=== PATIENT | female | born 1965 ===

== ENCOUNTER 2023-10-13 09:57 | Outpatient (AMB) | payer MEDICAID, SELFPAY ==
--- NOTE | 2023-10-13 11:19 | MHC.OFFWIV ---
Intake Vital Signs 10/13/23 11:21 Height 5 ft 2 in Weight 86.183 kg BMI 34.7 BP 110/70 Blood Pressure Location Rt brachial Position Sitting Pulse 82 Pulse Source Pulse Oximeter Temp 97.9 F Temp Source Temporal Artery Scan Pulse Oximetry (%) 97 Oxygen Delivery Method Room Air Intake Visit Reasons: EP, Left foot pain/swelling Intake Note: pt is here today for lft foot pain,swelling started 3 months ago Allergies No Known Allergies Allergy (Verified 10/13/23 11:24) Do you need a note to return to daycare/school/sports/work: No HPI HPI Comments History of Present Illness Details 1133 58-year old female presents with left lateral foot pain for the past year worsening acutely over the past 3 months patient tells me that this pain started a year ago when she dropped a can on her left foot she is coming from [place], according to patient she brings a file papers with her she has been diagnosed with a left ganglionic cyst to left lateral aspect of foot, was scheduled to have surgery done for this and [place] however she moved here. Does not have an orthopedic doctor and is looking for a referral. She comes with imaging and x-rays which I was able to see. Denies numbness, tingling, lower extremity swelling, chest pain, shortness of breath, calf pain. No recent trauma Physical exam tenderness to palpation overlying the 5th metatarsal and lateral aspect of foot with overlying swelling. Negative Monique bilaterally. Normal sensation distally. 2+ dorsalis pedis, anterior tibialis and posterior tibialis pulses equal bilateral. Patient likely secondary to inflammatory changes from ganglionic cyst versus bone bruise/contusion. Unlikely fracture, dislocation, neurovascular compromise, threat to Galan, arterial or venous occlusion. Plan at this time orthopedic referral, prednisone and naproxen. Educated patient on diagnosis and treatment plan, answered all question, patient verbalizes understanding. At this time patient will be discharged home, advised to return with new or worsening symptoms. Educated on worrisome signs and symptoms and when to return. At this time I feel comfortable discharge home. Review of Systems Const Details: Constitutional : No Weight loss, No Fever, No Chills, No Fatigue, No Malaise ENT/Mouth : No sore throat, No Rhinorrhea Eyes: No Eye Pain, No Swelling, No Redness Cardiovascular : No Chest Pain, No SOB, No Dyspnea on Exertion, No Orthopnea, No Edema, No Palpitations Respiratory : No Cough, No Sputum, No Wheezing Gastrointestinal : No Nausea, No Vomiting, No Diarrhea, No Constipation, No abdominal Pain, No Hematochezia, No Melena Genitourinary : No Dysuria, No Urinary Frequency, No Hematuria, Musculoskeletal : + joint pain, No Myalgias, + Joint Swelling Skin : No Skin Lesions, No rash Neuro : No Weakness, No Numbness, No Dizziness, No Headache Psych : No Anxiety/Panic, No Depression All other systems reviewed and are negative All systems reviewed & are unremarkable except as noted in HPI and below Physical Exam Vital Signs: Last Vital Signs Temp 97.9 F 10/13/23 11:21 Pulse 82 10/13/23 11:21 BP 110/70 10/13/23 11:21 Pulse Ox 97 10/13/23 11:21 Oxygen Delivery Method Room Air 10/13/23 11:21 BMI result Body Mass Index 34.7 Vital signs stable Appearance: Alert.? Oriented X3.? No acute distress.? Head: Normocephalic, atraumatic, no step-offs or deformities Eyes: Pupils equal, round and reactive to light.? CVS: Normal heart rate and rhythm.? Pulses normal.? Respiratory: No respiratory distress.? Breath sounds normal.? Skin: Skin warm and dry.? Normal skin color.? Normal skin turgor.? Extremities: No lower extremity edema.? No calf ttp. 5/5 strength to bilateral upper and lower extremities tenderness to palpation overlying the 5th metatarsal and lateral aspect of foot with overlying swelling. Negative Monique bilaterally. Normal sensation distally. 2+ dorsalis pedis, anterior tibialis and posterior tibialis pulses equal bilateral. Back: No midline tenderness, no C-spine tenderness, full range of motion, no CVA tenderness bilaterally Neuro: Oriented X 3.? No motor deficit.? No sensory deficit. CN 2-12 intact Assessment & Plan Assessment & Plan (1) Ganglion cyst of foot: Code(s): M67.479 - Ganglion, unspecified ankle and foot Plan Take your medications as prescribed. If you were prescribed antibiotics today, it is important that you take your medication to their entirety, do not skip any doses, do not finish them early. Follow-up with your primary care provider this week. Return to the emergency department with new or worsening symptoms. Such as fevers, chills, chest pain, shortness of breath, nausea, vomiting, dizziness, headache, vision changes, lethargy In case of emergency call 911 Orders: Referrals Orthopedics Referral M67.479 - Ganglion, unspecified ankle and foot Medications: New prednisone 40 mg (2 x 20 mg) PO DAILY 10 tabs 0RF 5 days naproxen 500 mg PO BID PRN 14 tabs 0RF pain Coding Level of Care Code Est Pt Level 3 (31030) Diagnoses Ganglion cyst of foot M67.479
[2023-10-13 11:21] VITALS: BP 110/70; PULSE 82; TEMP 36.6; O2SAT 97; BMI 34.7
== END 2023-10-13 11:56 | disposition home or self-care (01) ==
PROVIDERS: Visit Provider Physician Assistant
DX: M67.479 Ganglion, unspecified ankle and foot (principal)
CPT/HCPCS: 99213

== ENCOUNTER 2023-11-09 08:45 | Outpatient (AMB) | payer OTHER, SELFPAY ==
--- NOTE | 2023-11-09 08:51 | A.OFFPC_ITS ---
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 Intake Note: Pt is here to est care her last Pap and Mammo was in [place] about a year ago pt had her colon screen in was done in [place] and she says she is supposed to get checked every 5 years Allergies Penicillins Allergy (Intermediate, Verified 11/09/23 09:13) Hives Medication List - Last Reconciled 11/09/23 by MONICA Shaffer levothyroxine (Synthroid) 112 mcg PO DAILY Tobacco use date assessed: 11/09/23 Dental Screening Dental Screen Date: 11/09/23 Did you have a dental visit in the last 12 months?: Yes Did you have a dental problem in the last 6 months where you did not have access to dental care?: No Was dental information given to patient?: Patient has dentist HPI HPI Comments History of Present Illness Details Patient is a 58-year-old female here to establish care. She has a past medical history significant for hypothyroidism and asthma. She recently moved up to the [facility] from [place] and is looking to establish with a new primary care provider. She was recently seen in the walk-in clinic for a ganglion cyst of the left lower lateral aspect of the left extremity. X-ray and information from previous provider will be obtained. She was given a orthopedic referral and has an appointment this month. She is due for mammogram, will order. Her primary complaint today is bilateral hand pain. She states that she uses her hands often and has developed bilateral and pain over the MP joint. She denies any trauma to the area. This has been a problem that has slowly gotten worse over time. Uses Tylenol with little relief. Patient states that the pain is starting to interfere with daily life, having difficulty carrying her grocery. Patient has also been instructed that she should send does all of her healthcare information from her previous provider down in [place]. She states that her last colonoscopy was 1 year ago, and she was told at the time that she should be having colonoscopies every 5 years. Will verify. [facility], [facility] Medical History (Updated 11/09/23 @ 10:00 by MONICA Shaffer) Hypothyroidism Asthma Surgical History (Updated 11/09/23 @ 09:21 by MONICA Shaffer) H/O inguinal hernia repair History of H/O: hysterectomy Family History (Updated 11/09/23 @ 09:22 by MONICA Shaffer) Maternal Grandfather Diabetes type 2, controlled Father Diabetes type 2, controlled Social History Housing: Condominium Patient Tobacco Use Status: Former Tobacco user Quit Date: 10 years ago Years Smoked: 10 Second Hand Smoke Exposure: No service: No Current occupational status: retired Cognitive needs: No Hearing needs: No Vision needs: No Questionnaire PHQ-9 Over the last 2 weeks, how often have you been bothered by any of the following problems? 1. Little interest or pleasure in doing things: more than half the days 2. Feeling down, depressed, or hopeless: not at all 3. Trouble falling or staying asleep, or sleeping too much: more than half the days 4. Feeling tired or having little energy: several days 5. Poor appetite or overeating: several days 6. Feeling bad about yourself - or that you are a failure or have let yourself or your family down: not at all 7. Trouble concentrating on things, such as reading the newspaper or watching television: not at all 8. Moving or speaking so slowly that other people could have noticed. Or the opposite - being so fidgety or restless that you have been moving around a lot more than usual: not at all 9. Thoughts that you would be better off or of hurting yourself in some way: not at all Total score: 6 Depression Screening Interpretation: Negative Depression Screening Done: Yes 83141 - PHQ-9 Billing: Yes Source: Developed by Drs. Theron Peterson, Lucila Zelaya, Gus Cota and colleagues, with an educational laura from [employer]. Thrive Questionnaire Date Thrive assessed: 11/09/23 I am a: Patient What is your living situation today?: I have a steady place to live Within the past 12 months, did the food you bought not last and you didn't have the money to get more?: Sometimes True Within the past 12 months, did you worry whether your food would run out before you got money to buy more?: Sometimes True Do you have trouble paying for medicines?: Yes Do you have trouble getting transportation to medical appointments?: No Do you have trouble paying your heating and electricity bill?: No Do you have trouble taking care of your child, family member or friend?: No Do you have trouble with day-to-day activities such as bathing, preparing meals, shopping, managing finances, etc.?: No Are you currently unemployed and looking for a job?: No Are you interested in more education?: No AUDIT C Alcohol Use Questionnaire (AUDIT-C) 1. How often do you have a drink containing alcohol?: Monthly or less 2. How many drinks containing alcohol do you have on a typical day when you are drinking?: 1 or 2 3. How often do you have six or more drinks on one occasion?: Never Total Score: 1 ADAM-7 AMB Questionnaire ADAM-7 Date ADAM - 7 assessed: 11/09/23 Feeling nervous, anxious, or on edge: 1 = Several days Not being able to stop or control worryin = Not at all Worrying too much about different things: 2 = More than half the days Trouble relaxin = Several days Being so restless that it is hard to sit still: 0 = Not at all Becoming easily annoyed or irritable: 0 = Not at all Feeling afraid as if something awful might happen: 1 = Several days Total ADAM-7 score (0-4 normal; 5-9 mild; 10-14 moderate; 15-21 severe): 5 Source: Developed by Drs. Theron Peterson, Lucila Zelaya, Gus Cota and colleagues, with an educational laura from [employer]. ADAM-7 Assessment Billing ADAM-7 Assessment Tool: ADAM-7 Assessment 80264 Review of Systems Const Details: Constitutional : No Weight loss, No Fever, No Chills, No Fatigue, No Malaise ENT/Mouth : No sore throat, No Rhinorrhea Eyes: No Eye Pain, No Swelling, No Redness Cardiovascular : No Chest Pain, No SOB, No Dyspnea on Exertion, No Orthopnea, No Edema, No Palpitations Respiratory : No Cough, No Sputum, No Wheezing Gastrointestinal : No Nausea, No Vomiting, No Diarrhea, No Constipation, No abdominal Pain, No Hematochezia, No Melena Genitourinary : No Dysuria, No Urinary Frequency, No Hematuria, Musculoskeletal : Admits bilateral hand pain over MP joints. Skin : No redness. Patient admits to dark spots where previous fungal infection was. Neuro : No Weakness, No Numbness, No Dizziness, No Headache Psych : No Anxiety/Panic, No Depression Heme/Lymph: No Bruising, No Bleeding,No Lymphadenopathy Endocrine : No Polyuria, No Polydipsia All other systems reviewed and are negative Physical exam (Primary Care) Vital Signs: Last Vital Signs Pulse 76 11/09/23 08:53 BP 120/78 11/09/23 08:53 Pulse Ox 97 11/09/23 08:53 Oxygen Delivery Method Room Air 11/09/23 08:53 Care Plan Goal for BP management: Vitals reviewed and are stable. BMI result Body Mass Index 34.5 Tobacco/Smoking Status: Tobacco use Status Tobacco use date assessed 11/09/23 11/09/23 09:02 Patient Tobacco Use Status Former Tobacco user 11/09/23 09:02 Depression Screening Interpretation: Negative Const Other: Appearance: Alert.? Oriented X3.? No acute distress.? Head: Normocephalic, atraumatic, no step-offs or deformities Neck: Normal inspection.? Neck supple.? CVS: Normal heart rate and rhythm.? Pulses normal.? Respiratory: No respiratory distress.? Breath sounds normal.? Skin: Dark pigmented macular patch over previous site of fungal infection. Appears to be healing. ? Extremities: Erythema over the 1st and 2nd MP joint of the bilateral hands. 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 No cracking or crepitus. Warm to touch. Neuro: Oriented X 3.? No motor deficit.? No sensory deficit. CN 2-12 intact Results Reviewed Results Reviewed: Will call patient with lab results and imaging results. Assessment and Plan Assessment & Plan (1) Osteoarthritis: Comment: Patient has been given diclofenac gel to be used as prescribed. She has been educated how to use medication properly and common side effects. Will also obtain x-ray of bilateral hands. Code(s): M19.90 - Unspecified osteoarthritis, unspecified site Qualifiers: Osteoarthritis location: hand Osteoarthritis type: primary Laterality: bilateral Qualified Code(s): M19.041 - Primary osteoarthritis, right hand; M19.042 - Primary osteoarthritis, left hand Plan: Will follow-up after imaging results. Plan Patient is returning in 2 months for her annual physical exam. She has agreed to get labs drawn prior to that appointment. Orders: Orders Complete Blood Count Auto Diff Today Z13.0 - Encounter for screening for diseases of the blood and blood-forming organs and certain disorders involving the immune mechanism Comprehensive Met. Panel Today Z91.89 - Other specified personal risk factors, not elsewhere classified XR hand LT 2V Today M19.90 - Unspecified osteoarthritis, unspecified site Lipid Panel 1 Month Z13.220 - Encounter for screening for lipoid disorders Vitamin D 25-OH (D2 and D3) 1 Month Z13.21 - Encounter for screening for nutritional disorder TSH reflex Free T4 1 Month Z13.29 - Encounter for screening for other suspected endocrine disorder Rheumatoid Factor Today Z13.828 - Encounter for screening for other musculoskeletal disorder UA CC w/rflx Micro + Cult Today E86.0 - Dehydration XR hand RT 2V Today M19.90 - Unspecified osteoarthritis, unspecified site MM tomosynthesis screening BI Today Z12.31 - Encounter for screening mammogram for malignant neoplasm of breast Medications: New levothyroxine (Synthroid) 112 mcg PO DAILY 90 tabs 0RF diclofenac sodium 1% (Arthritis Pain (diclofenac)) apply to single elbow, wrist or hand; for hand includes palm/fingers/back of hand 2 grams topical QID 100 grams 0RF albuterol sulfate 90 mcg/actuation 2 puffs inhalation Q6H PRN 6.7 grams 0RF shortness of breath or wheezing Coding Level of Care Code Est Pt Level 3 (66361) Diagnoses Primary osteoarthritis of both hands M19.041; M19.042 Osteoarthritis location: hand Osteoarthritis type: primary Laterality: bilateral Additional Codes ADAM-7 Assessment Billing - ADAM-7 Assessment Tool: ADAM-7 Assessment 42804 ([id number]) Time Spent (min) 45
[2023-11-09 08:53] VITALS: BP 120/78; PULSE 76; O2SAT 97; BMI 34.5
== END 2023-11-09 10:01 | disposition home or self-care (01) ==
PROVIDERS: Visit Provider Nurse Practitioner Primary Care
DX: M19.041 Primary osteoarthritis, right hand (principal); M19.042 Primary osteoarthritis, left hand
CPT/HCPCS: 99214

== ENCOUNTER 2023-11-10 11:07 | Outpatient (REF) | payer OTHER, SELFPAY ==
--- NOTE | ~2023-11-10 | XR_ITS ---
EXAMINATION: XR HAND, LEFT CLINICAL INFORMATION: Osteoarthritis COMPARISON: None available. TECHNIQUE: PA, lateral, and oblique views of the left hand. FINDINGS: Bones are well-mineralized soft tissues unremarkable. Interphalangeal joints and metacarpophalangeal joints are unremarkable. There are mild degenerative changes of the first metacarpophalangeal joint with marginal spurring. XR/XR hand LT 2V IMPRESSION: Mild degenerative changes at the first carpometacarpal joint
--- NOTE | ~2023-11-10 | XR_ITS ---
EXAMINATION: XR HAND, RIGHT CLINICAL INFORMATION: Osteoarthritis COMPARISON: None available. TECHNIQUE: PA, lateral, and oblique views of the right hand. FINDINGS: Bones and soft tissues are unremarkable. Interphalangeal joints and metacarpophalangeal joints are preserved. There is no evidence of fracture. There are mild degenerative changes at the base of first carpometacarpal joint. XR/XR hand RT 2V IMPRESSION: Mild degenerative changes in the first carpometacarpal joint.
[2023-11-10 14:16] LABS: Alanine Aminotransferase 14 U/L (0-31); Alkaline Phosphatase 62 U/L (39-117); Anion Gap 13 (12-20); Aspartate Amino Transferase 17 U/L (5-31); Bilirubin Total 0.4 mg/dL (0.0-1.0); Blood Urea Nitrogen 14 mg/dL (9-16); Calcium 9.4 mg/dL (8.4-10.2); Carbon Dioxide 26 mmol/L (22-29); Chloride 107 mmol/L (96-108); Estimated Glomerular Filt Rate > 60; Glucose Random 100 mg/dL (60-115); Potassium 3.6 mmol/L (3.3-5.1); Sodium 142 mmol/L (135-145)
== END 2023-11-10 11:08 | disposition home or self-care (01) ==
LOC: HO.HMGCX 11:07
PROVIDERS: PCP Nurse Practitioner Primary Care; Visit Provider Nurse Practitioner Primary Care
DX: Z13.0 Encounter for screening for diseases of the blood and blood-forming organs and certain disorders involving the immune mechanism (principal); Z13.828 Encounter for screening for other musculoskeletal disorder; E86.0 Dehydration; Z91.89 Other specified personal risk factors, not elsewhere classified; M19.041 Primary osteoarthritis, right hand; M19.042 Primary osteoarthritis, left hand
CPT/HCPCS: 36415; 73120; 80053; 81003; 85025; 86431

== ENCOUNTER 2023-12-14 10:04 | Outpatient (AMB) | payer OTHER, SELFPAY ==
[2023-12-14 10:04] VITALS: BP 130/88; PULSE 90; TEMP 36.4; O2SAT 96; BMI 34.0
--- NOTE | 2023-12-14 10:04 | MHC.OFFWIV ---
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 [facility] Medical History (Updated 11/09/23 @ 10:00 by MONICA Shaffer) Hypothyroidism Asthma Surgical History (Updated 11/09/23 @ 09:21 by MONICA Shaffer) H/O inguinal hernia repair History of H/O: hysterectomy Family History (Updated 11/09/23 @ 09:22 by MONICA Shaffer) Maternal Grandfather Diabetes type 2, controlled Father Diabetes type 2, controlled Social History Housing: Condominium Patient Tobacco Use Status: Former Tobacco user Quit Date: 10 years ago Years Smoked: 10 Second Hand Smoke Exposure: No service: No Current occupational status: retired Cognitive needs: No Hearing needs: No Vision needs: No Review of Systems Const All systems reviewed & are unremarkable except as noted in HPI and below Physical Exam Vital Signs: Last Vital Signs Temp 97.5 F 12/14/23 10:04 Pulse 90 12/14/23 10:04 BP 130/88 12/14/23 10:04 Pulse Ox 96 12/14/23 10:04 Oxygen Delivery Method Room Air 12/14/23 10:04 BMI result Body Mass Index 34.0 HEENT Head: Yes normocephalic Ears: external ears normal, TM's normal bilaterally and TM abnormal not bulging, not bullous and not erythematous General nose exam: Normal nasal mucous membranes and turbinates present Face and sinus: Yes sinuses nontender Mouth: Normal oral and palatal mucosa present Throat: Yes posterior oropharynx normal Resp Effort & Inspection: normal respiratory effort Auscultation: clear to auscultation bilaterally Cardio Rate: regular rate Rhythm: regular rhythm Assessment & Plan Assessment & Plan (1) Otalgia: Code(s): H92.09 - Otalgia, unspecified ear Qualifiers: Laterality: left Qualified Code(s): H92.02 - Otalgia, left ear Plan: - Ears clear no infection at this time - Acetaminophen for pain relief. Medications: New acetaminophen 1,000 mg (2 x 500 mg) PO Q6H PRN 30 caps 0RF ear pain H92.02 - Otalgia, left ear Coding Level of Care Code Est Pt Level 3 (27498) Diagnoses Left ear pain H92.02 Laterality: left Time Spent (min) 15
== END 2023-12-14 11:17 | disposition home or self-care (01) ==
PROVIDERS: PCP Nurse Practitioner Primary Care; Visit Provider Nurse Practitioner Family
DX: H92.02 Otalgia, left ear (principal)
CPT/HCPCS: 99213

== ENCOUNTER 2023-12-18 09:37 | Outpatient (REF) | payer OTHER, SELFPAY ==
--- NOTE | ~2023-12-18 | MM_ITS ---
EXAMINATION: MM SCREENING DIGITAL BREAST TOMOSYNTHESIS, BILATERAL CLINICAL INFORMATION: Screening. Asymptomatic. COMPARISON: Mammography: This is a baseline mammogram. TECHNIQUE: Digital breast tomosynthesis is performed in both the craniocaudal and mediolateral oblique views along with computer-aided detection (CAD). Synthesized 2D images are generated from the tomosynthesis. FINDINGS: There are scattered areas of fibroglandular density (ACR BI-RADS breast composition Category b). There are no significant masses, abnormal calcifications, or other abnormalities. MM/MM tomosynthesis screening BI IMPRESSION: No mammographic evidence of malignancy. ASSESSMENT: BI-RADS BI-RADS 1 - Negative RECOMMENDATION: Routine annual mammography screening. 1 year F/U This examination should not preclude the clinical evaluation of a suspicious palpable abnormality. This patient's information was entered into a reminder system with a target due date for their next mammogram.
== END 2023-12-18 09:38 | disposition home or self-care (01) ==
LOC: HO.MAMMO 09:37
PROVIDERS: PCP Nurse Practitioner Primary Care; Visit Provider Nurse Practitioner Primary Care
DX: Z12.31 Encounter for screening mammogram for malignant neoplasm of breast (principal)
CPT/HCPCS: 77063; 77067

== ENCOUNTER → 2023-12-18 10:30 | Outpatient (BNV) | payer OTHER, SELFPAY | PROVIDERS: PCP Nurse Practitioner Primary Care; Visit Provider Radiology Diagnostic Radiology | DX: Z12.31 Encounter for screening mammogram for malignant neoplasm of breast (principal) | CPT/HCPCS: 77063; 77067 ==

== ENCOUNTER 2023-12-26 08:42 | Outpatient (REF) | payer OTHER, SELFPAY ==
[2023-12-26 11:59] LABS: Cholesterol 244 mg/dL (<200); HDL Cholesterol 60 mg/dL (>40); LDL Cholesterol Calculated 160 mg/dL (<100); Triglycerides 120 mg/dL (<150)
[2023-12-26 12:15] LABS: TSH reflex Free T4 6.49 uIU/mL (0.32-4.0)
[2023-12-29 13:38] LABS: Vitamin D 25-OH, D2 <4 ng/mL; Vitamin D 25-OH, D3 24 ng/mL; Vitamin D 25-OH, Total 24 ng/mL (30-100)
== END 2023-12-26 08:43 | disposition home or self-care (01) ==
LOC: HO.HMGCLDS 08:42
PROVIDERS: PCP Nurse Practitioner Primary Care; Visit Provider Nurse Practitioner Primary Care
DX: Z13.220 Encounter for screening for lipoid disorders (principal); Z13.21 Encounter for screening for nutritional disorder; Z13.29 Encounter for screening for other suspected endocrine disorder
CPT/HCPCS: 36415; 80061; 82306; 84439; 84443

== ENCOUNTER 2024-01-10 08:36 | Outpatient (AMB) | payer OTHER, SELFPAY ==
--- NOTE | 2024-01-10 08:37 | A.OFFPC_ITS ---
Vital Signs 01/10/24 08:39 Height 5 ft 2 in Weight 191 lb 6 oz BMI 35.0 BP 110/76 Blood Pressure Location Rt brachial Position Sitting Pulse 63 Pulse Source Pulse Oximeter Pulse Oximetry (%) 97 Oxygen Delivery Method Room Air Intake Visit Reasons: Annual PE Intake Note: Pt is here for her Annual PE Pt had her last PAP last year oct 2022 in [place] pt needs referral to [facility] Allergies Penicillins Allergy (Intermediate, Verified 01/10/24 09:28) Hives Medication List - Last Reconciled 01/10/24 by MONICA Shaffer albuterol sulfate 90 mcg/actuation 2 puffs inhalation Q6H PRN budesonide-formoterol 160-4.5 mcg/actuation (Symbicort) 1 puff inhalation BID cholecalciferol (vitamin D3) 50 mcg PO DAILY diclofenac sodium 1% (Aleve (diclofenac)) 2 grams topical QID levothyroxine (Synthroid) 112 mcg PO DAILY omeprazole 20 mg PO DAILY tobramycin-dexamethasone 0.3-0.1 % 1 drp ophthalmic (eye) triamcinolone acetonide 0.1% 1 appl topical DAILY Tobacco use date assessed: 01/10/24 Dental Screening Dental Screen Date: 01/10/24 Did you have a dental visit in the last 12 months?: Yes Did you have a dental problem in the last 6 months where you did not have access to dental care?: No Was dental information given to patient?: Patient has dentist HPI HPI Comments History of Present Illness Details Patient is a 58-year-old female here today for physical exam. She completed mammogram 12/30 with recommendation for 1 year follow-up. She is due for colonoscopy in 2027. She is due for Pap smear will refer to OBGYN. She is up-to-date with influenza and on the COVID immunizations. Patient had shingles in December 2023, is interested in the vaccine, and he recommended to wait 3 months from when symptoms resolve. She has a past medical history significant for osteoarthritis hand, hypothyroidism, and reactive airway disease. She has establish care with [facility] and is currently undergoing physical therapy. Patient will send us notes. [facility] Medical History Hypothyroidism Asthma Surgical History H/O inguinal hernia repair History of H/O: hysterectomy Family History Maternal Grandfather Diabetes type 2, controlled Father Diabetes type 2, controlled Social History [facility] Patient Tobacco Use Status: Former Tobacco user Quit Date: 10 years ago Years Smoked: 10 e-Cigarette/Vaping Use: Never Used Second Hand Smoke Exposure: No service: No Current occupational status: retired Cognitive needs: No Hearing needs: No Vision needs: No Questionnaire Thrive Questionnaire Date Thrive assessed: 11/09/23 ADAM-7 AMB Questionnaire ADAM-7 Date ADAM - 7 assessed: 11/09/23 Source: Developed by Drs. Theron Peterson, Lucila Zelaya, Gus Cota and colleagues, with an educational laura from [employer]. Review of Systems Const Details: Constitutional : No Weight loss, No Fever, No Chills, No Fatigue, No Malaise ENT/Mouth : No sore throat, No Rhinorrhea Eyes: No Eye Pain, No Swelling, No Redness Cardiovascular : No Chest Pain, No SOB, No Dyspnea on Exertion, No Orthopnea, No Edema, No Palpitations Respiratory : No Cough, No Sputum, No Wheezing Gastrointestinal : No Nausea, No Vomiting, No Diarrhea, No Constipation, No abdominal Pain, No Hematochezia, No Melena, Admits intermittent reflux. Genitourinary : No Dysuria, No Urinary Frequency, No Hematuria, Musculoskeletal : Admits bilateral hand pain, PIP joints. Skin : Admits dark colored spots on bilateral forearms, denies pain or discharge. Neuro : No Weakness, No Numbness, No Dizziness, No Headache Psych : No Anxiety/Panic, No Depression Heme/Lymph: No Bruising, No Bleeding,No Lymphadenopathy Endocrine : No Polyuria, No Polydipsia All other systems reviewed and are negative Physical exam (Primary Care) Vital Signs: Last Vital Signs Pulse 63 01/10/24 08:39 BP 110/76 01/10/24 08:39 Pulse Ox 97 01/10/24 08:39 Oxygen Delivery Method Room Air 01/10/24 08:39 BMI result Body Mass Index 35.0 Tobacco/Smoking Status: Tobacco use Status Tobacco use date assessed 01/10/24 01/10/24 08:47 Patient Tobacco Use Status Former Tobacco user 01/10/24 08:40 e-Cigarette/Vaping Use Never Used 01/10/24 08:47 Thrive Assessment: Date of Thrive Assessment Date Thrive assessed 11/09/23 01/10/24 08:40 Const Other: Appearance: Alert.? Oriented X3.? Head: Normocephalic, atraumatic. Eyes: Pupils equal, round and reactive to light.? ENT: Pharynx normal.?Septum midline, TM intact and pearly chatman. Neck: Normal inspection.? Neck supple.?Full ROM. No thyroid nodules. CVS: Normal heart rate and rhythm.? Pulses normal.? Respiratory: No respiratory distress.? Breath sounds slightly diminished bilaterally. ? Abdomen: Soft and nontender.? Skin: Small, flat, macules on forearms bilaterally, no erythema or discharge. No flaking. Extremities: No lower extremity edema.? No calf ttp. 5/5 strength to bilateral upper and lower extremities Back: No midline tenderness, no C-spine tenderness, full range of motion, no CVA tenderness bilaterally Neuro: Oriented X 3.? No motor deficit.? No sensory deficit. CN 2-12 intact Results Reviewed Results Reviewed: Sodium 142 135-145 mmol/L Potassium 3.6 3.3-5.1 mmol/L CL 107 96-108 mmol/L CO2 26 22-29 mmol/L Gap 13 12-20 BUN 14 9-16 mg/dL Creat 0.81 0.5-1.4 mg/dL EGFR > 60 NOTE: For -[place] individuals, multiply the result by 1.210. Chronic Kidney Disease: Estimated GFR < 60 mL/min/ 1.73m2 Severe Kidney Disease: Estimated GFR < 15 mL/min/1.73m2 Glucose, Random 100 60-115 mg/dL CA 9.4 8.4-10.2 mg/dL Total Bili 0.4 0.0-1.0 mg/dL AST (GOT) 17 5-31 U/L ALT (GPT) 14 0-31 U/L Protein, Total 7.0 6.5-8.0 g/dL Alb 4.0 3.5-5.0 g/dL Alk Phos 62 39-117 U/L Assessment and Plan Assessment & Plan (1) Encounter for routine adult physical exam with abnormal findings: Comment: Patient recently had full panel of labs. Has referral to OBGYN. Due for colonoscopy in 4 years. Up-to-date with influenza and COVID vaccine. Patient completed mammogram 1 month prior with recommendation for 1 year follow-up. Will put in labs to be drawn in 6 months. Code(s): Z00.01 - Encounter for general adult medical examination with abnormal findings (2) Multiple hypopigmented skin lesions on both forearms: Comment: Patient states she has developed hypopigmented dark spots on her forearms bilaterally. She states she originally had a rash that she was given a cream for when she was in [place], that is resolved. Since then she has started to develop these dark patches on her forearm. She states do not itch but are increasing in number. Will refer to Dermatology. Code(s): L81.9 - Disorder of pigmentation, unspecified (3) Osteoarthritis: Comment: Patient has been given diclofenac gel to be used as prescribed. She has been educated how to use medication properly and common side effects. Patient is currently being seen by [facility]. Code(s): M19.90 - Unspecified osteoarthritis, unspecified site Qualifiers: Laterality: bilateral Osteoarthritis location: hand Osteoarthritis type: primary Qualified Code(s): M19.041 - Primary osteoarthritis, right hand; M19.042 - Primary osteoarthritis, left hand (4) Reactive airway disease: Comment: Patient has reactive airway disease. Has COVID 1 month prior to this appointments that she felt chest tightness during that time. Will prescribe Symbicort along with her albuterol inhaler. Patient has been educated about side effects of this medication how to take it properly. Code(s): J45.909 - Unspecified asthma, uncomplicated Qualifiers: Asthma persistence: unspecified Asthma severity: mild Qualified Code(s): J45.909 - Unspecified asthma, uncomplicated Orders: Orders Complete Blood Count Auto Diff 5 Months Z13.0 - Encounter for screening for diseases of the blood and blood-forming organs and certain disorders involving the immune mechanism UA CC w/rflx Micro + Cult 5 Months Z13.89 - Encounter for screening for other disorder Comprehensive Met. Panel 5 Months Z91.89 - Other specified personal risk factors, not elsewhere classified Referrals [facility] Referral Z12.4 - Encounter for screening for malignant neoplasm of cervix Dermatology Referral L81.9 - Disorder of pigmentation, unspecified Medications: New budesonide-formoterol 160-4.5 mcg/actuation (Symbicort) 1 puff inhalation BID 10.2 grams 0RF omeprazole 20 mg PO DAILY 30 caps 0RF triamcinolone acetonide 0.1% 1 appl topical DAILY 15 grams 0RF Refilled diclofenac sodium 1% (Aleve (diclofenac)) apply to single elbow, wrist or hand; for hand includes palm/fingers/back of hand 2 grams topical QID 100 grams 0RF Coding Level of Care Code Est Pt Prev Care 40-64y(36119) Diagnoses Encounter for routine adult physical exam with abnormal findings Z00.01 Multiple hypopigmented skin lesions on both forearms L81.9 Primary osteoarthritis of both hands M19.041; M19.042 Laterality: bilateral Osteoarthritis location: hand Osteoarthritis type: primary Mild reactive airways disease, unspecified whether persistent J45.909 Asthma persistence: unspecified Asthma severity: mild Time Spent (min) 34
[2024-01-10 08:39] VITALS: BP 110/76; PULSE 63; O2SAT 97; BMI 35.0
== END 2024-01-10 09:34 | disposition home or self-care (01) ==
PROVIDERS: Visit Provider Nurse Practitioner Primary Care
DX: Z00.00 Encounter for general adult medical examination without abnormal findings (principal); L81.9 Disorder of pigmentation, unspecified; M19.041 Primary osteoarthritis, right hand; M19.042 Primary osteoarthritis, left hand; J45.909 Unspecified asthma, uncomplicated
CPT/HCPCS: 99396

== ENCOUNTER 2024-07-15 07:11 | Outpatient (REF) | payer OTHER, SELFPAY ==
[2024-07-15 10:06] LABS: Appearance Urine Turbid; Color Urine Yellow; Glucose Urine UA Negative (Negative); Leukocyte Esterase Urine Small (1+) (Negative); Nitrite Urine Negative (Negative); PH 8.5 (5.0-9.0); UMIC TRIGGER UACC YES; Urine Blood Negative (Negative); Urine Ketones Negative (Negative); Urine Protein Negative (Neg-Trace)
[2024-07-15 10:09] LABS: Bacteria Urine 1+ (None Seen); Hyaline Casts Urine 0-2 /LPF (0-2); RBC Urine 0-2 /HPF (0-2); Squamous Epithelial Cell Urine 0-2 /HPF (0-2); UACC Culture Trigger YES; WBC Urine 21-50 /HPF (0-5)
[2024-07-15 10:15] LABS: MANUAL DIFF FLAG NO
[2024-07-15 10:20] LABS: Basophils Percent Auto 0.6 % (0-2); Eosinophils Absolute Auto 0.1 X10*3/uL (0.0-0.4); Eosinophils Percent Auto 1.7 % (0-4); Hematocrit 43.1 % (37.0-47.0); Imm Gran Abs Auto 0.02 X10*3/uL (0.00-0.03); Imm Gran Pct Auto 0.3 % (0.0-0.4); Lymphocytes Absolute Auto 2.2 X10*3/uL (1.2-4.9); Lymphocytes Percent Auto 33.9 % (20-40); Mean Corpuscular HGB Conc 32.5 g/dl (31.0-35.0); Mean Corpuscular Hemoglobin 28.6 pg (27.0-33.0); Mean Corpuscular Volume 88.1 fL (80.0-98.0); Mean Platelet Volume 9.7 fL (9.4-12.3); Monocytes Absolute Auto 0.4 X10*3/uL (0.1-1.2); Monocytes Percent Auto 6.2 % (2-11); Neutrophils Absolute Auto 3.7 x10*3/uL (2.0-8.3); Neutrophils Percent Auto 57.3 % (45-73); Platelet Count 301 X10*3/uL (160-400); Red Blood Count 4.89 X10*6/uL (4.20-5.50); Red Cell Distribution Width 12.6 % (11.0-16.0); White Blood Count 6.5 X10*3/uL (4.8-10.8)
[2024-07-15 10:43] LABS: Alanine Aminotransferase 17 U/L (0-31); Albumin Level 4.1 g/dL (3.5-5.0); Alkaline Phosphatase 62 U/L (39-117); Anion Gap 12 (12-20); Aspartate Amino Transferase 16 U/L (5-31); Bilirubin Total 0.4 mg/dL (0.0-1.0); Blood Urea Nitrogen 18 mg/dL (9-16); Calcium 9.4 mg/dL (8.4-10.2); Carbon Dioxide 27 mmol/L (22-29); Chloride 107 mmol/L (96-108); Estimated Glomerular Filt Rate > 60; Glucose Random 86 mg/dL (60-115); Sodium 142 mmol/L (135-145)
== END 2024-07-15 07:12 | disposition home or self-care (01) ==
LOC: HO.HMGCLDS 07:11
PROVIDERS: Visit Provider Nurse Practitioner Primary Care
DX: Z91.89 Other specified personal risk factors, not elsewhere classified (principal); Z13.0 Encounter for screening for diseases of the blood and blood-forming organs and certain disorders involving the immune mechanism; R82.79 Other abnormal findings on microbiological examination of urine
CPT/HCPCS: 36415; 80053; 81001; 85025; 87086; 87088; 87186

== ENCOUNTER 2024-08-01 12:55 | Outpatient (AMB) | payer OTHER, SELFPAY ==
[2024-08-01 14:05] VITALS: BP 110/82; PULSE 73; O2SAT 100; BMI 36.0
--- NOTE | 2024-08-01 14:05 | MHC.PC.OV ---
Vital Signs 08/01/24 14:05 Height 5 ft 2 in Weight 197 lb BMI 36.0 BP 110/82 Blood Pressure Location Rt brachial Position Sitting Pulse 73 Pulse Source Pulse Oximeter Pulse Oximetry (%) 100 Oxygen Delivery Method Room Air Intake Visit Reasons: Transfer from [facility] Intake Note: Pt is here today transfer from [facility]: Had labs done and pt is concern regarding thyriod levels Allergies Penicillins Allergy (Intermediate, Verified 08/01/24 14:46) Hives Medication List - Last Reconciled 08/01/24 by Tamiko Dominguez MD albuterol sulfate 90 mcg/actuation 2 puffs inhalation Q6H PRN budesonide-formoterol 160-4.5 mcg/actuation (Symbicort) 1 puff inhalation BID cholecalciferol (vitamin D3) 50 mcg PO DAILY diclofenac sodium 1% (Aleve (diclofenac)) 2 grams topical QID levothyroxine 112 mcg PO DAILY omeprazole 20 mg PO DAILY tobramycin-dexamethasone 0.3-0.1 % 1 drp ophthalmic (eye) triamcinolone acetonide 0.1% 1 appl topical DAILY PRN 10 days Tobacco use date assessed: 08/01/24 Dental Screening Dental Screen Date: 08/01/24 Did you have a dental visit in the last 12 months?: Yes Did you have a dental problem in the last 6 months where you did not have access to dental care?: No Was dental information given to patient?: Patient has dentist HPI Transfer from [facility] HPI Details 59 year old lady with past medical history significant for osteoarthritis in hand, hypothyroidism, and mild intermittent asthma, here today to establish care with a new PCP. Patient states that she needs her thyroid medication refill. Has been doing well on it. Asthma controlled on present treatment. She however has been having recurrent runny nose, postnasal drainage, and watery itchy eyes over the last several weeks. She also had recent fasting labs done which showed normal fasting glucose, electrolytes are normal and renal function but fasting lipids showed elevated LDL cholesterol. [facility]LY [facility] Medical History (Updated 08/01/24 @ 15:07 by Tamiko Dominguez MD) Mild intermittent asthma Environmental and seasonal allergies Acquired hypothyroidism Dyslipidemia Hypothyroidism Asthma Surgical History H/O inguinal hernia repair History of H/O: hysterectomy Family History Maternal Grandfather Diabetes type 2, controlled Father Diabetes type 2, controlled Social History [facility] Patient Tobacco Use Status: Former Tobacco user Years Smoked: 10 e-Cigarette/Vaping Use: Never Used Second Hand Smoke Exposure: No service: No Current occupational status: retired Cognitive needs: No Hearing needs: No Vision needs: No Questionnaire PHQ-9 Over the last 2 weeks, how often have you been bothered by any of the following problems? 1. Little interest or pleasure in doing things: several days 2. Feeling down, depressed, or hopeless: not at all 3. Trouble falling or staying asleep, or sleeping too much: several days 4. Feeling tired or having little energy: several days 5. Poor appetite or overeating: not at all 6. Feeling bad about yourself - or that you are a failure or have let yourself or your family down: not at all 7. Trouble concentrating on things, such as reading the newspaper or watching television: not at all 8. Moving or speaking so slowly that other people could have noticed. Or the opposite - being so fidgety or restless that you have been moving around a lot more than usual: not at all 9. Thoughts that you would be better off or of hurting yourself in some way: not at all Total score: 3 Depression Screening Interpretation: Negative Depression Screening Done: Yes 21104 - PHQ-9 Billing: Yes Source: Developed by Drs. Theron Peterson, Lucila Zelaya, Gus Cota and colleagues, with an educational laura from [employer]. Thrive Questionnaire Date Thrive assessed: 07/26/24 I am a: Patient What is your living situation today?: I have a place to live, but I am worried about losing it in the future Within the past 12 months, did the food you bought not last and you didn't have the money to get more?: I choose not to answer this question Within the past 12 months, did you worry whether your food would run out before you got money to buy more?: Sometimes True Do you have trouble paying for medicines?: I choose not to answer this question Do you have trouble getting transportation to medical appointments?: I choose not to answer this question Do you have trouble paying your heating and electricity bill?: I choose not to answer this question Do you have trouble taking care of your child, family member or friend?: I choose not to answer this question Do you have trouble with day-to-day activities such as bathing, preparing meals, shopping, managing finances, etc.?: Yes Are you interested in more education?: I choose not to answer this question Currently or been in a relationship where the following occur: I choose not to answer THRIVE Score: 2 AUDIT C Alcohol Use Questionnaire (AUDIT-C) 1. How often do you have a drink containing alcohol?: Never Total Score: 0 ADAM-7 AMB Questionnaire ADAM-7 Date ADAM - 7 assessed: 08/01/24 Feeling nervous, anxious, or on edge: 0 = Not at all Not being able to stop or control worryin = Not at all Worrying too much about different things: 0 = Not at all Trouble relaxin = Not at all Being so restless that it is hard to sit still: 0 = Not at all Becoming easily annoyed or irritable: 0 = Not at all Feeling afraid as if something awful might happen: 0 = Not at all Total ADAM-7 score (0-4 normal; 5-9 mild; 10-14 moderate; 15-21 severe): 0 Source: Developed by Drs. Theron Peterson, Lucila Zelaya, Gus Cota and colleagues, with an educational laura from [employer]. ADAM-7 Assessment Billing ADAM-7 Assessment Tool: ADAM-7 Assessment 97525 Review of Systems Const Denies body aches, Denies fatigue, Denies fever(s), Denies headache(s) and Denies weakness Eyes Reports as per HPI ENT Denies dizziness, Denies headache(s) and Denies sore throat Card Denies chest pain, Denies lightheadedness, Denies palpitations and Denies dyspnea Resp Denies chest congestion, Denies cough, Denies dyspnea and Denies wheezing GI Denies abdominal pain, Denies change in bowel habits and Denies heartburn Denies hematuria, Denies urinary frequency, Denies dysuria and Denies urinary urgency Musc Reports no additional complaints Neuro Denies dizziness, Denies headache(s) and Denies weakness Psych Reports no additional complaints Endo Denies fatigue, Denies polydipsia, Denies polyuria and Denies palpitations Ty/Lymph Denies easy bruising Aller/Immun Reports seasonal rhinorrhea and Denies wheezing Physical exam (Primary Care) Vital Signs: Last Vital Signs Pulse 73 08/01/24 14:05 BP 110/82 08/01/24 14:05 Pulse Ox 100 08/01/24 14:05 Oxygen Delivery Method Room Air 08/01/24 14:05 BMI result Body Mass Index 36.0 Tobacco/Smoking Status: Tobacco use Status Tobacco use date assessed 08/01/24 08/01/24 14:07 Patient Tobacco Use Status Former Tobacco user 08/01/24 14:07 e-Cigarette/Vaping Use Never Used 08/01/24 14:07 PHQ-9: PHQ-9 Score PHQ-9: Total score 3 08/01/24 14:49 Depression Screening Interpretation: Negative Thrive Assessment: Date of Thrive Assessment Date Thrive assessed 07/26/24 08/01/24 14:07 Currently or been in a relationship where the following occur: I choose not to answer Const General: no acute distress and alert Orientation/consciousness: patient oriented x3 HENMT Ears: external ears normal General nose exam: Normal external nose present Mouth: Normal oral and palatal mucosa present, oropharynx normal and moist mucous membranes Eyes General: appearance normal, both eyes and all related structures Conjunctivae: conjunctivae normal Sclerae: sclerae normal Pupils: Equal, round and reactive pupils present EOM: EOMs intact bilaterally Neck Neck: Yes full ROM, Yes no lymphadenopathy and Yes supple Resp Effort & Inspection: normal respiratory effort and able to speak in complete sentences Auscultation: clear to auscultation bilaterally Cardio Rate: regular rate Rhythm: regular rhythm Heart sounds: S1 normal heart sound present and S2 normal heart sound present GI Palpation (GI): Soft to palpation, nontender and no masses Auscultation: normal bowel sounds Neuro General: patient oriented x3, gait normal, tone normal, moves all extremities, Normal light touch and pain sensation and no focal motor deficits Cranial nerves: Yes CN's II-XII intact bilaterally and Yes Equal, round and reactive pupils present Cognition (Neuro): normal cognition Extrem General: Yes full ROM, Yes no joint enlargement and Yes normal gait Results Reviewed Results Reviewed: Name: Joana Gr Age/Sex: 59/F : 1965 Unit#: [id number] Attend Dr: Ashutosh Gabriel [employer] Re07/15/24 Status: DEP REF Location: [facility] Disch: SPEC : [id number] KHRIS: 07/15/24 STATUS: COMP REQ : [id number] RECD: 07/15/24-[address]: Ashutosh Gabriel [employer] COMP: 07/15/24 ENTERED: 07/15/24 [facility] DR: ORDERED: CMP Test Result Flag Reference Sodium 142 135-145 mmol/L Potassium 4.0 3.3-5.1 mmol/L CL 107 96-108 mmol/L CO2 27 22-29 mmol/L Gap 12 12-20 BUN 18 H 9-16 mg/dL Creat 0.75 0.5-1.4 mg/dL EGFR > 60 NOTE: For -[place] individuals, multiply the result by 1.210. Chronic Kidney Disease: Estimated GFR < 60 mL/min/1.73m2 Severe Kidney Disease: Estimated GFR < 15 mL/min/1.73m2 Glucose, Random 86 60-115 mg/dL CA 9.4 8.4-10.2 mg/dL Total Bili 0.4 0.0-1.0 mg/dL AST (GOT) 16 5-31 U/L ALT (GPT) 17 0-31 U/L Protein, Total 7.0 6.5-8.0 g/dL Alb 4.1 3.5-5.0 g/dL Alk Phos 62 39-117 U/L Assessment and Plan Assessment & Plan (1) Dyslipidemia: Code(s): E78.5 - Hyperlipidemia, unspecified Plan: Stressed importance of following a low-cholesterol diet and getting regular exercise, fasting lipid panel ordered (2) Acquired hypothyroidism: Code(s): E03.9 - Hypothyroidism, unspecified Plan: Ordered TSH and free T4 as well as thyroid peroxidase antibody, in the meantime continue with current dose of levothyroxine (3) Environmental and seasonal allergies: Code(s): J30.89 - Other allergic rhinitis Plan: Prescription sent for cetirizine 10 mg 1 tablet once a day as needed at bedtime, and prescription also sent for ketotifen eyedrops, to use as needed twice a day for itchy eyes (4) Mild intermittent asthma: Code(s): J45.20 - Mild intermittent asthma, uncomplicated Plan: Continue on Symbicort and albuterol inhaler as directed Orders: Orders Thyroid Stimulating Hormone Today E03.9 - Hypothyroidism, unspecified, E78.5 - Hyperlipidemia, unspecified Free T4 (Free Thyroxine) Today E03.9 - Hypothyroidism, unspecified, E78.5 - Hyperlipidemia, unspecified Lipid Panel Today E03.9 - Hypothyroidism, unspecified, E78.5 - Hyperlipidemia, unspecified Vitamin D 25-OH Total Today E03.9 - Hypothyroidism, unspecified, E78.5 - Hyperlipidemia, unspecified Thyroid Peroxidase Antibodies Today E03.9 - Hypothyroidism, unspecified Medications: New cetirizine 10 mg PO DAILY PRN 30 tabs 0RF allergy symptoms ketotifen fumarate 0.025%(0.035%) (Allergy Eye (ketotifen)) administer at least 8 hours apart 1 drp ophthalmic (eye) BID 5 mL 0RF Itchy eyes Coding Level of Care Code Est Pt Level 4 (40173) Complex EM visit Add On G2211 Diagnoses Dyslipidemia E78.5 Acquired hypothyroidism E03.9 Environmental and seasonal allergies J30.89 Mild intermittent asthma J45.20 Additional Codes ADAM-7 Assessment Billing - ADAM-7 Assessment Tool: ADAM-7 Assessment [id number] ([id number])
== END 2024-08-01 15:06 | disposition home or self-care (01) ==
PROVIDERS: PCP Internal Medicine; Visit Provider Internal Medicine
DX: E78.5 Hyperlipidemia, unspecified (principal); E03.9 Hypothyroidism, unspecified; J30.89 Other allergic rhinitis; J45.20 Mild intermittent asthma, uncomplicated

== ENCOUNTER → 2024-08-01 12:55 | Outpatient (BNVA) | payer OTHER, SELFPAY | PROVIDERS: PCP Internal Medicine; Visit Provider Internal Medicine | DX: E78.5 Hyperlipidemia, unspecified (principal); E03.9 Hypothyroidism, unspecified; J45.20 Mild intermittent asthma, uncomplicated; J30.89 Other allergic rhinitis | CPT/HCPCS: 96127; 99212 ==

== ENCOUNTER 2024-08-02 07:19 | Outpatient (REF) | payer OTHER, SELFPAY ==
[2024-08-02 10:42] LABS: Cholesterol 205 mg/dL (<200); Free T4 (Free Thyroxine) 1.05 ng/dL (0.71-1.85); HDL Cholesterol 53 mg/dL (>40); LDL Cholesterol Calculated 133 mg/dL (<100); Triglycerides 95 mg/dL (<150); Vitamin D 25-OH Total 41.9 ng/mL (>30)
[2024-08-06 09:44] LABS: Thyroid Peroxidase Antibodies 53 IU/mL (<9)
== END 2024-08-02 07:20 | disposition home or self-care (01) ==
LOC: HO.HMGCLDS 07:19
PROVIDERS: PCP Internal Medicine; Visit Provider Internal Medicine
DX: E78.5 Hyperlipidemia, unspecified (principal); E03.9 Hypothyroidism, unspecified
CPT/HCPCS: 36415; 80061; 82306; 84439; 84443; 86376

== ENCOUNTER 2024-09-21 07:43 | Outpatient (REF) | payer OTHER, SELFPAY ==
[2024-09-21 11:45] LABS: Appearance Urine Clear; Color Urine Yellow; Glucose Urine UA Negative (Negative); Leukocyte Esterase Urine Trace (Negative); Nitrite Urine Negative (Negative); Specific Gravity - Urine <= 1.005 (1.005-1.025); UMIC TRIGGER UACC YES; Urine Blood Negative (Negative); Urine Ketones Negative (Negative); Urine Protein Negative (Neg-Trace)
[2024-09-21 11:49] LABS: Bacteria Urine 1+ (None Seen); Hyaline Casts Urine 0-2 /LPF (0-2); RBC Urine 0-2 /HPF (0-2); Squamous Epithelial Cell Urine 0-2 /HPF (0-2); WBC Urine 0-5 /HPF (0-5)
== END 2024-09-21 07:44 | disposition home or self-care (01) ==
LOC: HO.HMGCLDS 07:43
PROVIDERS: PCP Internal Medicine; Visit Provider Internal Medicine
DX: R35.0 Frequency of micturition (principal); N30.00 Acute cystitis without hematuria
CPT/HCPCS: 81001

== ENCOUNTER 2024-09-23 08:56 | Outpatient (AMB) | payer OTHER, SELFPAY ==
--- NOTE | 2024-09-23 09:06 | MHC.OFFWIV ---
Intake Vital Signs 09/23/24 09:07 Height 5 ft 2 in Weight 199 lb 8 oz BMI 36.5 BP 126/68 Blood Pressure Location Rt brachial Position Sitting Pulse 87 Pulse Source Pulse Oximeter Temp 97.0 F Temp Source Temporal Artery Scan Pulse Oximetry (%) 98 Oxygen Delivery Method Room Air Intake Visit Reasons: EP-?uti Intake Note: Joana is a 59 year old female who presents to the office today for c/o painful urination, and frequency x5 days. Patient Tobacco Use Status: Former Tobacco user Allergies Penicillins Allergy (Intermediate, Verified 09/23/24 09:09) Hives HPI HPI Comments History of Present Illness Details Patient is a 59-year-old female complaining of 5 days of burning with urination, feeling like she is not completely emptying her bladder and increased frequency of urination as well as some low back pain. She denies any fevers, blood in her urine or history of kidney stones. [facility] Medical History (Updated 09/23/24 @ 09:22 by Nell Ramos PA-C) Vacuolar interface dermatitis Mild intermittent asthma Environmental and seasonal allergies Acquired hypothyroidism Dyslipidemia Hypothyroidism Asthma Surgical History H/O inguinal hernia repair History of H/O: hysterectomy Family History Maternal Grandfather Diabetes type 2, controlled Father Diabetes type 2, controlled Social History Housing: Condominium Patient Tobacco Use Status: Former Tobacco user Years Smoked: 10 e-Cigarette/Vaping Use: Never Used Second Hand Smoke Exposure: No service: No Current occupational status: retired Cognitive needs: No Hearing needs: No Vision needs: No Review of Systems Const All systems reviewed & are unremarkable except as noted in HPI and below Physical Exam Vital Signs: Last Vital Signs Temp 97.0 F 09/23/24 09:07 Pulse 87 09/23/24 09:07 BP 126/68 09/23/24 09:07 Pulse Ox 98 09/23/24 09:07 Oxygen Delivery Method Room Air 09/23/24 09:07 BMI result Body Mass Index 36.5 Const General: cooperative, healthy appearing, comfortable and no acute distress Orientation/consciousness: patient oriented x3 HEENT Head: Yes normal to inspection Ears: hearing grossly normal bilaterally General nose exam: Normal external nose present Face and sinus: Yes normal facial exam Neck Neck: Yes normal visual inspection, Yes trachea midline and Yes supple Resp Effort & Inspection: normal respiratory effort and able to speak in complete sentences Skin General skin exam: no rashes or lesions noted Neuro General: patient oriented x3 Psych Appearance: grossly normal Speech and movement: Normal speech and movement present Attitude: cooperative Thought process: Normal thought process present Insight: Good insight present (Psych) Judgement: Good judgement present (Psych) Assessment & Plan Assessment & Plan (1) UTI (urinary tract infection): Code(s): N39.0 - Urinary tract infection, site not specified Qualifiers: Urinary tract infection type: acute cystitis Hematuria presence: without hematuria Qualified Code(s): N30.00 - Acute cystitis without hematuria Plan: Urinalysis negative for leukocyte esterase, nitrites or blood. We will treat patient based on her symptoms, with a penicillin allergy, sent Macrobid. Plan See above Medications: New nitrofurantoin monohyd/m-cryst 100 mg (Macrobid) must administer with a meal/food 100 mg PO Q12H 10 caps 0RF 5 days Coding Level of Care Code Est Pt Level 3 (17803) Diagnoses Acute cystitis without hematuria N30.00 Urinary tract infection type: acute cystitis Hematuria presence: without hematuria
[2024-09-23 09:07] VITALS: BP 126/68; PULSE 87; TEMP 36.1; O2SAT 98; BMI 36.5
== END 2024-09-23 09:24 | disposition home or self-care (01) ==
PROVIDERS: PCP Internal Medicine; Visit Provider Physician Assistant
DX: N30.00 Acute cystitis without hematuria (principal)

== ENCOUNTER 2024-09-23 08:56 | Outpatient (REF) | payer OTHER, SELFPAY ==
[2024-09-23 13:52] LABS: Appearance Urine Clear; Color Urine Yellow; Glucose Urine UA Negative (Negative); Leukocyte Esterase Urine Trace (Negative); Nitrite Urine Negative (Negative); UMIC TRIGGER UACC YES; Urine Blood Negative (Negative); Urine Ketones Negative (Negative); Urine Protein Negative (Neg-Trace)
[2024-09-23 13:54] LABS: Bacteria Urine 3+ (None Seen); Hyaline Casts Urine 0-2 /LPF (0-2); RBC Urine 0-2 /HPF (0-2); Squamous Epithelial Cell Urine 0-2 /HPF (0-2); WBC Urine 0-5 /HPF (0-5)
== END 2024-09-23 08:57 | disposition home or self-care (01) ==
LOC: HO.LAB 08:56
PROVIDERS: PCP Internal Medicine; Visit Provider Physician Assistant
DX: N30.00 Acute cystitis without hematuria (principal); R35.0 Frequency of micturition
CPT/HCPCS: 81001; 81003; 99212

== ENCOUNTER 2024-10-17 13:31 | Outpatient (AMB) | payer OTHER, SELFPAY ==
[2024-10-17 13:36] VITALS: BP 126/70; BMI 35.8
--- NOTE | 2024-10-17 13:36 | MHC.OFFVIS ---
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 Director Present Information Interpreted: clinical only Clinical Research Associate: Clinical Research Associate Present Allergies Penicillins Allergy (Intermediate, Verified 10/17/24 13:37) Hives Medication List - Last Reconciled 10/17/24 by Randa Smith CNM albuterol sulfate 90 mcg/actuation 2 puffs inhalation Q6H PRN budesonide-formoterol 160-4.5 mcg/actuation (Symbicort) 1 puff inhalation BID cetirizine 10 mg PO DAILY PRN cholecalciferol (vitamin D3) 50 mcg PO DAILY diclofenac sodium 1% (Aleve (diclofenac)) 2 grams topical QID ketotifen fumarate 0.025%(0.035%) (Allergy Eye (ketotifen)) 1 drp ophthalmic (eye) BID levothyroxine 112 mcg PO DAILY nitrofurantoin monohyd/m-cryst 100 mg (Macrobid) 100 mg PO Q12H 5 days omeprazole 20 mg PO DAILY tobramycin-dexamethasone 0.3-0.1 % 1 drp ophthalmic (eye) triamcinolone acetonide 0.1% 1 appl topical DAILY PRN 10 days Is last menstrual period known: No Post menopausal: Yes (2009 (surgery)) HPI 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 She is postmenopausal she says she has been menopausal for about 15 years. She here from [place] past year. She had been living here for years and her son and then she needs [place] she helped her father but been who last do so could not stay there because it this is so she had back here to be with her sister but then her sister moved to [place]. She does have her daughter and other son here. She has got issues with arthritis so had applied disability rejected. She has got skin complaints she had unusual discolorations in the arms and biopsies done that was negative, so that is good but she still does not is she also has a birthmark on her left for She is complaining itchy burning rash on her lower back that she said a doctor [place] gave her antibiotics for an food up but it has returned she has been letting the hot water shower and that feels good and also scrubbing it with the scrubbie. She said she showed to her doctor in [place] and negative cream did not do anything. she thought it was anti-itch cream. She does not think she ever had an abnormal Pap smear thinks her last Pap smear was 2 years ago in [place]. To delivered 1 of her children by [place] in the other 2 by [facility] got her care at [facility] in 1984 1985. [facility] Medical History Vacuolar interface dermatitis Mild intermittent asthma Environmental and seasonal allergies Acquired hypothyroidism Dyslipidemia Hypothyroidism Asthma Surgical History H/O inguinal hernia repair History of H/O: hysterectomy Family History Maternal Grandfather Diabetes type 2, controlled Father Diabetes type 2, controlled Social History Housing: Condominium Patient Tobacco Use Status: Former Tobacco user Years Smoked: 10 e-Cigarette/Vaping Use: Never Used Second Hand Smoke Exposure: No service: No Current occupational status: retired Cognitive needs: No Hearing needs: No Vision needs: No Female Reproductive History Menstrual Age of Menarche: 13 control method: none Total pregnancies: 3 Full term: 2 Date of last pap smear: 06/28/23 (negative,per pt.) History of abnormal pap smear: No Date of Mammogram: 12/18/13 (negative) Physical Exam Vital Signs: Last Vital Signs BP 126/70 10/17/24 13:36 BMI result Body Mass Index 35.8 Const Other: Her forearmss have grayish darkened mottled patches almost consistent with Giraffe spots in formation and geometry. On her lower back there were 3 rash she areas the largest about the size of the order middle nickel size smallest dime-sized no vesicles that would be consistent with herpetic lesions. General: healthy appearing, comfortable, no acute distress, well developed and alert Nutritional Appearance: average body habitus Orientation/consciousness: patient oriented x3 Limitations: no limitations HEENT Head: Yes normocephalic Neck Neck: Yes normal visual inspection Chest Chest palpation & inspection: normal inspection of the chest Breast/axilla inspection: normal inspection of the breasts and normal inspection of the axillae Breast/axilla palpation: normal palpation of the breasts and normal palpation of the axillae Resp Effort & Inspection: normal respiratory effort GI Inspection: Yes normal to inspection, No Abdominal wall edema and No distended Palpation (GI): Soft to palpation and nontender Other: Vagina is postmenopausal atrophic pink mucosa cervix small pink mobile nontender consistent with nulliparity tightly closed uterus difficult to feel but mobile nontender not enlarged adnexa nonenlarged good muscle tone with Kegel. General: Yes bladder normal to palpation External Female Exam: normal external appearance and normal appearance of the urethra Speculum Exam - Vagina: normal appearance of the vagina, normal palpation and normal vaginal discharge Speculum Exam - Cervix: normal appearance of the cervix, normal palpation and nontender Bimanual exam- vagina & uterus: normal bimanual exam, normal palpation, uterine size normal, bladder normal to palpation, consistency normal, normal palpation, uterine mobility normal, uterine shape normal, No Cervical tenderness present, non-tender and no cervical motion tenderness Bimanual Exam- Adnexa, other: normal adnexae, no masses, normal and No adnexal tenderness Neuro General: patient oriented x3 Assessment & Plan Assessment & Plan (1) Multiple hypopigmented skin lesions on both forearms: Comment: Patient states she has developed hypopigmented dark spots on her forearms bilaterally. She states she originally had a rash that she was given a cream for when she was in [place], that is resolved. Since then she has started to develop these dark patches on her forearm. She states do not itch but are increasing in number. Will refer to Dermatology. Code(s): L81.9 - Disorder of pigmentation, unspecified Category: Medical (2) Vacuolar interface dermatitis: Comment: Noted on skin biopsy of right ventral proximal forearm done by Dr. Lu, 06/25/2024. Prescribed triamcinolone 0.1% ointment twice a day for 2 weeks Code(s): L30.8 - Other specified dermatitis Category: Medical (3) Rash and other nonspecific skin eruption: Code(s): R21 - Rash and other nonspecific skin eruption Category: Medical (4) Women's annual routine gynecological examination: Code(s): Z01.419 - Encounter for gynecological examination (general) (routine) without abnormal findings Category: Medical (5) Encounter for screening examination for sexually transmitted disease: Code(s): Z11.3 - Encounter for screening for infections with a predominantly sexual mode of transmission Category: Medical (6) Cervical cancer screening: Code(s): Z12.4 - Encounter for screening for malignant neoplasm of cervix Category: Medical Plan -----Discussed in this visit the following: healthy balanced diet, regular and consistent exercise, getting recommended health screens, doing the best she can for her particular health concerns, kegel exercises, pap smear screening and followup recommendations, mammography screening and SBE, normal changes in cycles in her life stage--- . Pap smear done as well as testing for STIs as her last encounter was about 3-4 months ago. Call her for an positive results in send her letter regardless about her Pap results. She is concerned about her various rashes and I recommend she return to her primary care provider and inquire about dermatology referral though she thinks 1 is coming she already has seen 1 in the past.. While she is waiting for an appointment with either primary care or dermatology suggest she try 2 things. For the mottled discoloration in her forearms, is of the resemblance to tinea versicolor. Suggest trying using Selsun Blue every day for a few weeks to see if it makes a difference,-reviewed what to do I recommend she leave it on in the shower for 5 minutes before rinsing off. For the rash on her back recommend not lose in very hot water and do not scrub it raw with scrubbie. Instead use warm water pat dry and then apply triple antibiotic ointment daily while she was waiting for the dermatology appt. Both [id number] and probably can not hurt. I suggest she take pictures of both the arms and the rash on her back in case they improve and are no longer present when she sees the wet cotton feeder, Orders: Orders Pap Smear Today Z01.419 - Encounter for gynecological examination (general) (routine) without abnormal findings CT NG by PCR Today N89.8 - Other specified noninflammatory disorders of vagina Bacterial Vaginosis Panel Today N89.8 - Other specified noninflammatory disorders of vagina Coding Level of Care Code New Pt Prev Care 40-64y(61161) Diagnoses Multiple hypopigmented skin lesions on both forearms L81.9 Vacuolar interface dermatitis L30.8 Rash and other nonspecific skin eruption R21 Women's annual routine gynecological examination Z01.419 Encounter for screening examination for sexually transmitted disease Z11.3 Cervical cancer screening Z12.4
== END 2024-10-17 15:21 | disposition home or self-care (01) ==
PROVIDERS: PCP Internal Medicine; Visit Provider Advanced Practice Midwife
DX: Z01.419 Encounter for gynecological examination (general) (routine) without abnormal findings (principal)
CPT/HCPCS: 99386

== ENCOUNTER 2024-10-17 13:31 | Outpatient (REF) | payer OTHER, SELFPAY ==
[2024-10-18 11:36] LABS: HPV 16,18/45 See PAP report
[2024-10-18 16:44] LABS: CT PCR NOT DETECTED (Not Detect.); NG PCR NOT DETECTED (Not Detect.)
[2024-10-18 17:24] LABS: Bacterial Vaginosis PCR POSITIVE (Negative); Candida Group PCR NOT DETECTED (Not Detect); Candida glab krusei PCR NOT DETECTED (Not Detect); Trichomonas vaginalis PCR NOT DETECTED (Not Detect)
== END 2024-10-17 13:32 | disposition home or self-care (01) ==
LOC: HO.LNP 13:31
PROVIDERS: PCP Internal Medicine; Visit Provider Advanced Practice Midwife
DX: Z01.419 Encounter for gynecological examination (general) (routine) without abnormal findings (principal); N89.8 Other specified noninflammatory disorders of vagina; Z78.0 Asymptomatic menopausal state
CPT/HCPCS: 0352U; 87491; 87591; 87624; 88175; 99386; 99459

== ENCOUNTER 2024-10-17 15:44 | Outpatient (REF) | payer OTHER, SELFPAY | END 2024-10-17 15:45 | disposition home or self-care (01) | LOC: HO.LAB 15:44 | PROVIDERS: Visit Provider Advanced Practice Midwife | DX: Z13.89 Encounter for screening for other disorder (principal) ==

== ENCOUNTER 2024-11-07 08:52 | Outpatient (REF) | payer OTHER, SELFPAY | END 2024-11-07 08:53 | disposition home or self-care (01) | LOC: HO.LAB 08:52 | PROVIDERS: PCP Internal Medicine | DX: N30.00 Acute cystitis without hematuria (principal); B02.9 Zoster without complications | CPT/HCPCS: 81003; 87086; 99212 ==

== ENCOUNTER 2024-11-07 08:52 | Outpatient (AMB) | payer OTHER, SELFPAY ==
--- NOTE | 2024-11-07 09:05 | MHC.OFFWIV ---
Intake Vital Signs 11/07/24 09:14 Weight 197 lb BP 130/80 Blood Pressure Location Lt brachial Position Sitting Pulse 74 Pulse Source Pulse Oximeter Temp 97.7 F Temp Source Oral Pulse Oximetry (%) 99 Oxygen Delivery Method Room Air Intake Visit Reasons: EP Pain/burning when urinating, rash on buttock. Intake Note: Patient here for lower back pain, pain and burning when urinating which has been present for about 1 week. She also mentioned she has a rash on buttocks that she noticed after finishing antibiotics. Patient Tobacco Use Status: Former Tobacco user Allergies Penicillins Allergy (Intermediate, Verified 11/07/24 09:16) Hives Do you need a note to return to daycare/school/sports/work: No HPI HPI Comments History of Present Illness Details History of Present Illness - The patient is a 59-year-old female presenting with painful and burning urination persisting for three days. - She reports an initial diagnosis of a urinary tract infection approximately one month ago, for which she was prescribed a 7-day course of antibiotics (Macrobid). - Symptoms improved temporarily but recurred one week after completing the course of antibiotics. She denies any associated fevers. - Additionally, the patient has a history of shingles diagnosed five years ago and mentions current symptoms consistent with shingles, including a rash on her right buttock cheek that developed five days ago. - Previous advice included vaccination for shingles but she states she got it in 2019. Physical Exam General: Cooperative, healthy appearing, comfortable, no acute distress and well developed Orientation: Patient oriented x3 Limitations: No limitations Head: Normal to inspection Ears: Hearing grossly normal bilaterally Nose: Normal external nose present Face and sinus: normal appearance Eyes: Appearance normal, both eyes and all related structures Neck: Normal visual inspection and Yes full ROM Respiratory: Normal respiratory effort and able to speak in complete sentences. Skin: 3 small areas of erythema on right central buttock, no vesicles noted. no warmth or exudate noted Neuro: Patient oriented x3 Extremities: Normal to inspection [facility] Medical History Vacuolar interface dermatitis Mild intermittent asthma Environmental and seasonal allergies Acquired hypothyroidism Dyslipidemia Hypothyroidism Asthma Surgical History H/O inguinal hernia repair History of H/O: hysterectomy Family History Maternal Grandfather Diabetes type 2, controlled Father Diabetes type 2, controlled Social History [facility] Patient Tobacco Use Status: Former Tobacco user Years Smoked: 10 e-Cigarette/Vaping Use: Never Used Second Hand Smoke Exposure: No service: No Current occupational status: retired Cognitive needs: No Hearing needs: No Vision needs: No Female Reproductive History Menstrual Age of Menarche: 13 Review of Systems Const All systems reviewed & are unremarkable except as noted in HPI and below Physical Exam Vital Signs: Last Vital Signs Temp 97.7 F 11/07/24 09:14 Pulse 74 11/07/24 09:14 BP 130/80 11/07/24 09:14 Pulse Ox 99 11/07/24 09:14 Oxygen Delivery Method Room Air 11/07/24 09:14 Assessment & Plan Assessment & Plan (1) Shingles: Code(s): B02.9 - Zoster without complications Qualifiers: Herpes zoster complications: without complications Qualified Code(s): B02.9 - Zoster without complications Plan: Too far into symptoms to treat with antiviral. For the pain associated with the shingles rash, gabapentin will be initiated at 100 mg nightly for nerve pain relief. I advised the patient to coordinate further with her primary care provider concerning shingles vaccination advisability. Patient was informed and verbally consented to the use of an ambient scribe for clinic note documentation during this visit. (2) UTI (urinary tract infection): Code(s): N39.0 - Urinary tract infection, site not specified Qualifiers: Urinary tract infection type: acute cystitis Hematuria presence: without hematuria Qualified Code(s): N30.00 - Acute cystitis without hematuria Plan: I have prescribed ciprofloxacin for the complicated suspected urinary tract infection with PCN allergy, to be taken for three days. A urine culture will confirm the effectiveness of this treatment, with follow-up adjustments if needed. Treated based on symptoms as UA was negative for infection or blood. Will send culture as now complicated UTI . Orders: Orders Urine Culture Today N39.0 - Urinary tract infection, site not specified Medications: New ciprofloxacin HCl 250 mg PO Q12H 6 tabs 0RF gabapentin 100 mg PO TID 20 caps 0RF Coding Level of Care Code Est Pt Level 4 (56634) Diagnoses Herpes zoster without complication B02.9 Herpes zoster complications: without complications Acute cystitis without hematuria N30.00 Urinary tract infection type: acute cystitis Hematuria presence: without hematuria
[2024-11-07 09:14] VITALS: BP 130/80; PULSE 74; TEMP 36.5; O2SAT 99
== END 2024-11-07 09:29 | disposition home or self-care (01) ==
PROVIDERS: PCP Internal Medicine; Visit Provider Physician Assistant
DX: B02.9 Zoster without complications (principal); N30.00 Acute cystitis without hematuria; Z13.9 Encounter for screening, unspecified

== ENCOUNTER 2024-11-14 07:59 | Outpatient (AMB) | payer OTHER, SELFPAY ==
[2024-11-14 08:05] VITALS: BP 118/80; PULSE 76; TEMP 36.8; O2SAT 98; BMI 36.2
--- NOTE | 2024-11-14 08:05 | AM.OFFWIN_ITS ---
Intake Vital Signs 11/14/24 08:05 Height 5 ft 2 in Weight 198 lb BMI 36.2 BP 118/80 Blood Pressure Location Lt brachial Position Sitting Pulse 76 Pulse Source Pulse Oximeter Temp 98.3 F Temp Source Oral Pulse Oximetry (%) 98 Oxygen Delivery Method Room Air Intake Visit Reasons: EP ?UTI Intake Note: Pt is here today c/o burning upon urination, vaginal itchy and has a rash in her rectal area Patient Tobacco Use Status: Former Tobacco user Allergies Penicillins Allergy (Intermediate, Verified 11/14/24 08:12) Hives HPI HPI Comments History of Present Illness Details History of Present Illness - The patient is a 59-year-old female pr esenting with continued burning and itching symptoms initially of the vaginal area but now has moved to the anal area. - Presented for a Urinary Tract Infectio n on September 23, completing prescribed antibiotics with symptom relief. - On November 07, presented with symptom s of Herpes Zoster; UTI diagnostics were negative but with her symptoms, she was prescribed Cipro. She tells me the rash is resolved. - Still experiences perianal burning and itching, with transient expectations of UTI recurrence due to previous similar symptomatic experiences. - Recent exacerbation in symptoms noted, with burning and itching more pronounced around the perianal area, PFSH Medical History Vacuolar interface dermatitis Mild intermittent asthma Environmental and seasonal allergies Acquired hypothyroidism Dyslipidemia Hypothyroidism Asthma Surgical History H/O inguinal hernia repair History of H/O: hysterectomy Family History Maternal Grandfather Diabetes type 2, controlled Father Diabetes type 2, controlled Social History Housing: Condominium Patient Tobacco Use Status: Former Tobacco user Years Smoked: 10 e-Cigarette/Vaping Use: Never Used Second Hand Smoke Exposure: No service: No Current occupational status: retired Cognitive needs: No Hearing needs: No Vision needs: No Female Reproductive History Menstrual Age of Menarche: 13 Review of Systems Const All systems reviewed & are unremarkable except as noted in HPI and below Physical Exam Vital Signs: Last Vital Signs Temp 98.3 F 11/14/24 08:05 Pulse 76 11/14/24 08:05 BP 118/80 11/14/24 08:05 Pulse Ox 98 11/14/24 08:05 Oxygen Delivery Method Room Air 11/14/24 08:05 BMI result Body Mass Index 36.2 Const General: cooperative, healthy appearing, comfortable, no acute distress and well developed Orientation/consciousness: patient oriented x3 Limitations: no limitations HEENT Head: Yes normal to inspection Ears: hearing grossly normal bilaterally General nose exam: Normal external nose present Face and sinus: Yes normal facial exam Eyes General: appearance normal, both eyes and all related structures Neck Neck: Yes normal visual inspection and Yes full ROM Resp Effort & Inspection: normal respiratory effort and able to speak in complete sentences Other: perianal erythema, no warmth or signs of infection noted External Female Exam: normal external appearance, No erythema, No externally tender, No external swelling, No lesion, No laceration, No External ecchymosis (female) and No urethral discharge Skin General skin exam: no rashes or lesions noted Neuro General: patient oriented x3 Extrem General: Yes normal to inspection Results AMB Urinalysis, Automated UA Leukoctes 0 Malik/uL Last Edit by Prince Perea CMA on 11/14/24 08:17 UA Nitrite Negative Last Edit by Prince Perea CMA on 11/14/24 08:17 UA Urobilinogen 0.2 mg/dL Last Edit by Prince Perea CMA on 11/14/24 08 :17 UA Protein 0 mg/dL Last Edit by Prince Perea CMA on 11/14/24 08:17 UA pH 6.0 Last Edit by Prince Perea CMA on 11/14/24 08:17 UA Blood 0 Surinder/uL Last Edit by Prince Perea CMA on 11/14/24 08:17 UA Specific [place] 1.015 Last Edit by Prince Perea CMA on 11/14/24 08:17 UA Ketone Negative Last Edit by Prince Perea CMA on 11/14/24 08:17 UA Bilirubin 0 mg/dL Last Edit by Prince Perea CMA on 11/14/24 08:17 UA Glucose 0 mg/dL Last Edit by Prince Perea CMA on 11/14/24 08:17 AMB Urinalysis, Automated UA Leukoctes 0 Malik/uL Last Edit by Roxana Lima CMA on 11/14/24 08:21 UA Nitrite Negative Last Edit by Roxana Lima CMA on 11/14/24 08:21 UA Urobilinogen 0.2 mg/dL Last Edit by Roxana Lima CMA on 11/14/24 08:21 UA Protein 0 mg/dL Last Edit by Roxana Lima CMA on 11/14/24 08:21 UA pH 6.0 Last Edit by Roxana Lima CMA on 11/14/24 08:21 UA Blood 0 Surinder/uL Last Edit by Roxana Lima CMA on 11/14/24 08:21 UA Specific [place] 1.015 Last Edit by Roxana Lima CMA on 11/14/24 08:21 UA Ketone Negative Last Edit by Roxana Lima CMA on 11/14/24 08:21 UA Bilirubin 0 mg/dL Last Edit by Roxana Lima CMA on 11/14/24 08:21 UA Glucose 0 mg/dL Last Edit by Roxana Lima CMA on 11/14/24 08:21 Results Reviewed Results Reviewed: Laboratory Last Values Urine pH (Auto) 6.0 11/14/24 08:17 Specific [place] (Auto) 1.015 11/14/24 08:17 Urine Protein (Auto) 0 mg/dL 11/14/24 08:17 Glucose (UA)(Auto) 0 mg/dL 11/14/24 08:17 Urine Ketones (Auto) Negative 11/14/24 08:17 Urine Blood (Auto) 0 Surinder/uL 11/14/24 08:17 Urine Nitrite (Auto) Negative 11/14/24 08:17 Urine Bilirubin (Auto) 0 mg/dL 11/14/24 08:17 Urine Urobilinogen (Auto) 0.2 mg/dL 11/14/24 08:17 Leukocyte Esterase (Auto) 0 Malik/uL 11/14/24 08:17 Assessment & Plan Assessment & Plan (1) Rash and other nonspecific skin eruption: Code(s): R21 - Rash and other nonspecific skin eruption Plan: Plan The patient's current symptoms of perianal irritation are likely due to non- infectious inflammation, with management focusing on symptomatic relief. Primary treatment involves the use of petroleum-based ointments like A and D ointment for soothing and healing, applied twice daily over the affected area. As a secondary measure, if the ointment is not effective, clotrimazole cream may be used if symptoms persist beyond a few days, indicating potential fungal involvement, although this is not the anticipated cause. Additionally, a topical agent such as Vagisil cream may be recommended for its soothing properties though the irritation is perianal, not vaginal at this point. Careful observation over the next few days will help determine the necessity of further treatments. Patient was informed and verbally consented to the use of an ambient scribe for clinic note documentation during this visit. Orders: Orders AMB Urinalysis Automated Today Z13.9 - Encounter for screening, unspecified AMB Urinalysis Automated Today Z13.9 - Encounter for screening, unspecified Medications: New clotrimazole 1% 1 appl topical Q12H 2 weeks 45 grams 0RF Coding Level of Care Code Est Pt Level 3 (23552) Diagnoses Rash and other nonspecific skin eruption R21
== END 2024-11-14 08:39 | disposition home or self-care (01) ==
PROVIDERS: PCP Internal Medicine; Visit Provider Physician Assistant
DX: R21 Rash and other nonspecific skin eruption (principal)

== ENCOUNTER → 2024-11-14 07:59 | Outpatient (BNVA) | payer OTHER, SELFPAY | PROVIDERS: PCP Internal Medicine; Visit Provider Physician Assistant | DX: R21 Rash and other nonspecific skin eruption (principal) | CPT/HCPCS: 81003; 99212 ==

== ENCOUNTER → 2024-12-24 09:15 | Outpatient (BNV) | payer OTHER, SELFPAY | PROVIDERS: PCP Internal Medicine; Visit Provider Internal Medicine | DX: Z12.31 Encounter for screening mammogram for malignant neoplasm of breast (principal) | CPT/HCPCS: 77063; 77067 ==

== ENCOUNTER 2024-12-24 09:17 | Outpatient (REF) | payer OTHER, SELFPAY ==
--- OUTSIDE RECORDS SUMMARY | 2024-12-24 10:01 | XMS_ITS | Clinical Summary ---
Author Organization [facility] Address [id number] [place] [id number] Care Team Providers Care Bakery Assistant Name Role Phone Sadie Baum MD Primary Care Prov ider Allergies Active Allergy Reactions Criticality Noted Date Comments Penicillins Swelling 05/10/2017 Medications acyclovir (ZOVIRAX) 5 % cream Apply smal lamount topically QID prn rash 0 Active albuterol HFA (PROAIR HFA ; PROVENTIL HFA ; VENTOLIN HFA) 90 mcg/actuation inhaler Inhale 2 Puffs into the lungs every 4 hours as needed for Cough or Wheezing. 1 Active cetirizine (ZyrTEC) 10 mg tablet Take 1 Tab by mouth at bedtime. 0 Active cholecalciferol (VITAMIN D-3) 50 mcg (2,000 unit) tablet Take 1 Tab by mouth daily. 1 Active fluticasone propionate (Flovent Diskus) 100 mcg/actuation diskus inhaler Inhale 1 Puff into the lungs 2 times daily. 0 Active levothyroxine (SYNTHROID, LEVOTHROID) 150 mcg tablet Take 1 Tab by mouth daily. 0 Active melatonin 3 mg tablet TAKE 1 TABLET BY MOUTH EVERYDAY AT BEDTIME 1 Active peg 400-propylene glycol (Systane Ultra) 0.4-0.3 % drops apply to the eye. 0 Active multivit-min/fo lic acid/lutein (CENTRUM SILVER ORAL) Take 1 Each by mouth daily. 0 Active Active Problems Problem Noted Date Diagnosed Date Class 2 obesity due to exces s calories with body mass index (BMI) of 39.0 to 39.9 in adult 10/25/2024 Hepatitis C antibody test positive 01/09/2020 Asthma 05/10/2017 Hypothyroidism 05/10/2017 Tubular adenoma of rectum 05/10/2017 Overview (10/25/2024): Colonoscopy 09/2016--Dr Quijano--needs follow up in 2020 Vitamin D deficiency 05/10/2017 Immunizations Name Administration Dates Next Due Influenza Quadravalent, MDCK , 0.5ml, preservative free (Flucelvax) 6mo and older 07/15/2020,01/08/2020 Influenza Quadravalent, MDCK , 0.5ml, with preservative (Flucelvax) 6mo and older 07/11/2017 Pneumococcal polysaccharide 23 valent (Pneumovax 23) 2yo and older 07/11/2017 Tdap Tetanus diptheria acell ular pertussis (Boostrix; Adacel) 7yo and older 06/20/2018 Zoster Live 09/02/2020 Surgical History Surgery Date Site/Laterality Comments COLONOSCOPY 09/13/2016 PROCEDURE: HISTORICAL COLONOSCOPY; COMMENT: tubular adenoma rectum, Dr Quijano, rpt 2020 HERNIA REPAIR 2012 PROCEDURE: HISTORICAL HERNIA REPAIR/ING OTHER SURGICAL HISTORY 2011 PROCEDURE: HISTORICAL SUPRACERVICAL HYSTERECTOMY W/O BSO Medical History Medical History Date Comments Former smoker 05/10/2017 DX:Former smoker Hypothyroidism 05/10/2017 DX:Hypothyroidis m Asthma 05/10/2017 DX:Asthma Tubular adenoma of rectum 05/10/2017 DX:Tub ular adenoma of rectum; COMMENT: Colonoscopy 09/2016--Dr Quijano--needs follow up in 2020 Vitamin D deficiency 05/10/2017 DX:Vitamin D deficiency Morbid obesity with BMI of 4 0.0-44.9, adult (CMS/HCC) 05/10/2017 DX:Morbid obesity with BMI o f 40.0-44.9, adult (HCC) Family History Medical History Relation Name Comments Coronary artery disease Father Diabetes Father kidney disease, asthma Hypertension Father Breast cancer Neg Hx Colon cancer Neg Hx Ovarian cancer Neg Hx Uterine cancer Neg Hx Relation Name Status Comments Father Social History Tobacco Use Types Packs/Day Years Used Date Smoking Tobacco: Former Cigarettes Smokeless Tobacco: Never Alcohol Use Standard Drinks/Week Comments No 0 (1 standard drink = 0.6 oz pur e alcohol) Comments Unknown Sex and Gender Information Value Date Recorded Sex Assigned at Not on file Legal Sex Female 5:20 PM EST Gender Identity Not on file Sexual Orientation Not on file Obstetrics History Plan of Treatment Health Maintenance Due Date Last Done Comments Hepatitis B Vaccines (1 of 3 - 19+ 3-dose series) 1985 Pneumococcal Vaccine: 50+ Years (2 of 2 - PCV) 07/11/2018 07/11/2017 Pneumococcal Vaccine: Pediatrics (0 to 5 Years) and At-Risk Patients (6 to 64 Years) (2 of 2 - PCV) 07/11/2018 07/11/2017 Zoster Vaccines (2 of 3) 10/28/2020 09/02/2020 Cervical Cancer Screening: P ap Smear 08/29/2021 08/29/2018, 08/29/2018, 08/29/2018 Breast Cancer Screening 09/10/2022 09/10/20 20, 02/27/2019 Colorectal Cancer Screening: Colonoscopy 10/08/2022 09/13/2016 Depression Screening 10/08/2022 Social Influencers of Health Screening 10/08/2022 COVID-19 Vaccine (1 - 2023-2 5 season) 2024 Influenza Vaccine (#1) 2024 0, 01/08/2020, 07/11/2017 Cholesterol Screening (Lipid Panel) 01/04/2026 01/04/2021 DTaP,Tdap,and Td Vaccines (2 - Td or Tdap) 06/20/2028 06/20/2018 Hepatitis C Screening Completed 01/08/2020 HIV Screening Completed 01/09/2020 HIB Vaccines Aged Out No longer eligi ble based on patient's age to complete this topic HPV Vaccines Aged Out No longer eligi ble based on patient's age to complete this topic Hepatitis A Vaccines Aged Out No long er eligible based on patient's age to complete this topic IPV Vaccines Aged Out No longer eligi ble based on patient's age to complete this topic MMR Vaccines Aged Out No longer eligi ble based on patient's age to complete this topic Meningococcal ACWY Vaccine Aged Out N o longer eligible based on patient's age to complete this topic Meningococcal B Vacine Aged Out No lo nger eligible based on patient's age to complete this topic RSV Immunization Patients Under 20 months Aged Out No longer eligible b ased on patient's age to complete this topic Varicella Vaccines Aged Out No longer eligible based on patient's age to complete this topic Procedures Procedure Name Priority Date/Time Associated Diagnosis Comments LIPID PANEL Routine 01/04/2021 [facility] SCREENING DIGITAL Routine 09/10/2020 1:39 PM EST Encounter for screening mammogram for malignant neoplasm of breast HIV SCREENING Routine 01/09/2020 HEPATITIS C SCREENING Routine 01/08/2020 PAP SMEAR Routine 08/29/2018 COLONOSCOPY Routine 09/13/2016 from Last 3 Months or Most Recently Relevant to Health Maintenance Results * (ABNORMAL) Lipid panel (01/04/2021) LDL/HDL Ratio 4 0 - 4 Triglycerides 128 0 - 150 mg/dL Cholesterol 199 0 - 200 mg/dL HDL 51 >=40 mg/dL LDL Cholesterol 123(A) 0 - 100 mg/dL Blood Venous blood specimen / Unknown Historical Provider LAB BLOOD ORDERABLES Erna l Result * [facility] SCREENING DIGITAL (09/10/2020 1:39 PM EST) Anatomical Region Laterality Modality Mammography 09/10/2020 8:50 AM EST Narrative 09/10/2020 1:39 PM EST [facility] Diagnostic Imaging Department [address] [place], [place] [id number] Patient: ??JOVANNA ALEJO ?/Age/Sex: 1965 - 55 - F Unit#: ??[id number] ? Location/Status: ??SPDIMAM/REG CLI ? Mnemonic/Ordering Site: ??DIGSC/SPMAM Ordering Physician: ??AMADO MORRIS MD Seema Screening Digital - 09/10/20915 History: Bilateral breast cancer screening. Technique: ??Digital mammography. Conventional CC and MLO projections with tomosynthesis MLO views and computer aided detection. Comparison: [facility] and outside mammography 02/27/2019, dating back to 12/19/2007. Findings: ?? Breast tissue consists of fatty and fibroglandular elements (category b density) bilaterally (as calculated by [employer] software). There is no suspicious group of microcalcifications, mass, architectural distortion or suspicious change in breast tissue density. Impression: No evidence of malignancy. BIRADS category 1; negative study, 3341F 28289, [id number] Note: Patient information entered into a reminder system with a target due date for the next mammogram: ??CPT II 7025F Dictating Physician: ??WOLF COLON MD Electronically Signed by: ??WOLF COLON MD Dic Date/Time: ??09/10/20 1339 Sign date/Time: ??09/10/20 1339 Procedure Note Wolf Colon MD - 10/25/2022 [facility] Diagnostic Imaging Department [address] [place] [id number] Patient: JOVANNA ALEJO /Age/Sex: 1965 - 55 - F Unit#: [id number] Location/Status: SPDIMAM/REG CLI Mnemonic/Ordering Site: [facility] Ordering Physician: AMADO MORRIS MD Seema Screening Digital - 09/10/20 - 915 History: Bilateral breast cancer screening. Technique: Digital mammography. Conventional CC and MLO projectionswith tomosynthesis MLO views and computer aided detection. Comparison: [facility] and outside mammography 02/27/2019, datingback to 12/19/2007. Findings: Breast tissue consists of fatty and fibroglandular elements (category b density) bilaterally (as calculated by [employer]). There is no suspicious group of microcalcifications, mass, architectural distortion or suspicious change in breast tissue density. Impression: No evidence of malignancy. BIRADS category 1; negative study, 3341F 42088, [address]96 Note: Patient information entered into a reminder system with a target duedate for the next mammogram: CPT II 7025F Dictating Physician: WOLF COLON MD Electronically Signed by: WOLF COLON MD Dic Date/Time: 09/10/20 1339 Sign date/Time: 09/10/20 1339 Amado Morris MD IMG BI PROCEDURES Final R esult * HIV Screening (01/09/2020) HIV Screening abstracted Historical Provider HEALTH MAINTENANCE Final Result * Hepatitis C Screening (01/08/2020) Hepatitis C Screening abstracted Historical Provider HEALTH MAINTENANCE Final Result * Pap smear (08/29/2018) 08/29/2018 Narrative HISTORICAL TESTING LAB RESULTING AGENCY - 08/31/2018 3:55 PM EDT [id number] THINPREP PAP, IMAGED: NEGATIVE FOR SQUAMOUS INTRAEPITHELIAL LESION AND MALIGNANCY ??. CLUE CELLS ARE PRESENT. RESULT OF APTIMA HIGH RISK HPV ASSAY: ? NEGATIVE ?? (SEROTYPES 16,18,31,33,35,39,45,51,52,56,58,59,66,68) CAYLA MOREIRA(ASCP) (CASE ELECTRONICALLY SIGNED 08 31 2018) ADEQUACY: SATISFACTORY. ENDOCERVICAL/TRANSFORMATION ZONE COMPONENT ABSENT. SOURCE: THINPREP PAP HPV ANY DX: ??REFLEX 16 AND 18, CERVICAL, IMAGED: CLINICAL INFORMATION: HPV ANY DIAGNOSIS. PARTIAL HYSTERCTOMY, PAP HX NEG [Z12.4] Merlene Mcgowan DO LAB CYTOLOGY ORDERABLES Final Result HISTORICAL TESTING LAB RESULTING AGENCY * Colonoscopy (09/13/2016) Colonoscopy No interpreta tion,abstr acted Anatomical Region Laterality Modality Other Historical Provider HEALTH MAINTENANCE Final Result from Last 3 Months or Most Recently Relevant to Health Maintenance Care Teams Bakery Assistant Relationship Specialty Start Date End Date Sadie Baum MD PCP - General 10/10/23
== END 2024-12-24 09:18 | disposition home or self-care (01) ==
LOC: HO.MAMMO 09:17
PROVIDERS: PCP Internal Medicine; Visit Provider Internal Medicine
DX: Z12.31 Encounter for screening mammogram for malignant neoplasm of breast (principal)
CPT/HCPCS: 77063; 77067

== ENCOUNTER 2024-12-30 17:30 | Emergency (ER) | payer OTHER, SELFPAY ==
[2024-12-30 17:56] VITALS: BP 123/84; PULSE 89; RESP 18; TEMP 36.1; O2SAT 98; BMI 35.5
--- NOTE | 2024-12-30 17:58 | ED_ITS ---
HPI - Eye Problem General Chief complaint: Eye Problems Stated complaint: oscar. eyes swelling/irritation Time Seen by Provider: 12/31/24 00:15 History of Present Illness ED Provider: Nallely TORRES Narrative: The patient is a 59-year-old female who says that she started to have bilateral eye irritation yesterday. It got worse today. She feels that it is somewhat more severe in the right eye. She describes itchiness and discomfort. She does not think that she got anything in her eye but she does note that her daughter did a lot of cleaning in the house yesterday before her symptoms began and she wonders whether she might be having some kind of reaction to all the cleaning her daughter did. She denies any trauma. She does not think she got any foreign body in her eyes. She not really feel that her vision is any different. She does not feel particularly ill otherwise. Related Data Home Medications ?Medication ?Instructions ?Recorded ?Confirmed tobramycin 0.3 %-dexamethasone 0.1 1 drp ophthalmic (eye) 12/14/23 10/17/24 % eye drops,suspension cholecalciferol (vitamin D3) 50 50 mcg PO DAILY 01/10/24 10/17/24 mcg (2,000 unit) capsule Previous Rx's ?Medication ?Instructions ?Recorded budesonide-formoterol HFA 160 1 puff inhalation BID #30.6 grams 01/24/24 mcg-4.5 mcg/actuation aerosol inhaler (Symbicort) omeprazole 20 mg capsule,delayed 20 mg PO DAILY #90 caps 01/24/24 release cetirizine 10 mg tablet 10 mg PO DAILY PRN allergy 08/06/24 symptoms #30 tabs triamcinolone acetonide 0.1 % 1 appl topical DAILY PRN rash 10 10/02/24 topical cream days #15 grams Ventolin HFA 90 mcg/actuation 2 puff inhalation Q6H PRN 10/31/24 aerosol inhaler (albuterol sulfate) shortness of breath or wheezing #8 grams gabapentin 100 mg capsule 100 mg PO TID #20 caps 11/07/24 clotrimazole 1 % topical cream 1 appl topical Q12H 2 weeks #45 11/14/24 grams diclofenac sodium 1 % topical gel 2 g topical QID #100 grams 12/27/24 levothyroxine 112 mcg tablet 112 mcg PO DAILY #90 tabs 12/27/24 erythromycin 5 mg/gram (0.5 %) eye 0.5 inch ophthalmic (eye) QID #3.5 12/31/24 ointment grams loratadine 10 mg tablet 10 mg PO DAILY PRN allergic 12/31/24 (Allerclear) symptoms #14 tabs Allergies Allergy/AdvReac Type Severity Reaction Status Date / Time Penicillins Allergy Intermediate Hives Verified 12/30/24 17:58 Review of Systems Review of Systems: Yes all other systems are reviewed and are negative [facility] Past Medical History Medical History Vacuolar interface dermatitis Mild intermittent asthma Environmental and seasonal allergies Acquired hypothyroidism Dyslipidemia Hypothyroidism Asthma Surgical History H/O inguinal hernia repair History of H/O: hysterectomy Family History Family History Maternal Grandfather Diabetes type 2, controlled Father Diabetes type 2, controlled Social History Social History Housing: Condominium Patient Tobacco Use Status: Former Tobacco user Years Smoked: 10 e-Cigarette/Vaping Use: Never Used Second Hand Smoke Exposure: No Advance Directives: No Advance Directives Information Provided: Yes service: No Current occupational status: retired Cognitive needs: No Hearing needs: No Vision needs: No Physical Exam Vital Signs: Vital Signs: Last Vital Signs Temp 97.9 F 12/31/24 00:35 Pulse 74 12/31/24 00:35 Resp 20 12/31/24 00:35 BP 146/86 H 12/31/24 00:35 Pulse Ox 99 12/31/24 00:35 O2 Del Method Room Air 12/31/24 00:35 BMI result Body Mass Index 35.5 Const: Other: The patient is awake and alert. She does not appear in obvious distress. She does not appear overtly ill. HEENT: Other: Face is symmetrical. Mucous membranes moist. The posterior pharynx is normal. Eyes: Other: There is some minimal injection to the conjunctiva of both eyes, more apparent on the right eye. Corneas appear clear. Pupils are round equal. Extraocular movements are intact. Visual acuity with glasses is 20/20 in the left eye and 20/ 40 in the right eye. Neck: Neck: Yes no lymphadenopathy Resp: Effort & Inspection: normal respiratory effort Auscultation: clear to auscultation bilaterally Cardio: Rate: regular rate Rhythm: regular rhythm Heart sounds: S1 normal heart sound present and S2 normal heart sound present Skin: Other: Skin is dry and unremarkable Neuro: Other: The patient is awake and alert with a normal mental status. Her demeanor is nontoxic. Cranial nerves are grossly intact. She moves her extremities normally and appropriately. Course Course Course Narrative: This is a Rapid Medical Examination (RME) performed by Lita Muñiz PA-C in triage. Full HPI, ROS, assessment and treatment plan per primary provider in the Main ED. 59 yo female here for eval of b/l eye pain and swelling x2 days. reports increased tearing. does not recall getting anything in her eyes. no vision changes. no trauma/injury. Plan: Fluorescein, tetracaine, visual acuity Medications Administered Discontinued Medications Generic Name Dose Route Start Last Admin Trade Name Dejuanq PRN Reason Stop Dose Admin Erythromycin 1 cm 12/31/24 00:21 12/31/24 00:33 Erythromycin Base 0.5% Oph Oin 1 Gm Tube EYE-BOTH 12/31/24 00:22 1 cm ONCE ONE Administration Fluorescein Sodium 1 strip 12/30/24 17:59 12/31/24 00:35 Fluorescein Sodium Strip EYE-BOTH 12/30/24 18:00 Not Given ONCE ONE Loratadine 10 mg 12/31/24 00:21 12/31/24 00:33 Loratadine 10 Mg Tablet PO 12/31/24 00:22 10 mg ONCE ONE Administration Tetracaine HCl 1 drop 12/30/24 17:59 12/31/24 00:35 Tetracaine Hcl/Pf 0.5% Oph Emilie 4 Ml Drops EYE-BOTH 12/30/24 18:00 Not Given ONCE ONE Medical Decision Making Medical Decision Making MDM Narrative: The patient is a 59-year-old woman who presents with complaints of bilateral eye discomfort, the right eye discomfort is worse than the left. Her eyes do not appear obviously abnormal. There may be some minimal conjunctival injection. She describes a burning sensation and itchiness. This may be some kind of an allergic reaction or it may be some kind of a viral conjunctivitis. She was given loratadine. She was also given erythromycin ointment. My expectation is she should get better. She was given a prescription for loratadine if she finds it helpful. She should follow up with her PCP. She was also given the contact information for Dr. Upton's office. Lab Data Labs: Lab Results 12/31/24 Range/Units 00:22 Influenza Type A (PCR) NEGATIVE (Negative) Influenza Type B (PCR) NEGATIVE (Negative) RSV RNA Qual (PCR) NEGATIVE (Negative) SARS-CoV-2 RNA (RT-PCR) NEGATIVE (Negative) Discharge Plan Discharge Clinical Impression: Conjunctivitis Patient Disposition: Home, Self-Care Instructions: Conjunctivitis (ED) Additional Instructions: You seem to have an irritation to your eyes which might be the result of an allergic reaction or possibly a viral infection. I have sent a prescription for the medication loratadine, an antihistamine, which you may use as needed for itchiness and other symptoms of eye irritation. You have also been prescribed erythromycin ointment, please apply half an inch of this ointment 4 times a day. Please stay in touch with your regular doctor's office for additional evaluation and advice. If at any point you feel your symptoms are significantly worse with your vision is significantly worse please contact the ophthalmology office for a specialist opinion. If you are unable to see the warehouse distribution specialist please return to the emergency room for another visit if significantly worse. Prescriptions: New loratadine [Allerclear] 10 mg tablet 10 mg PO DAILY PRN (Reason: allergic symptoms) Qty: 14 0RF erythromycin 5 mg/gram (0.5 %) ointment 0.5 inch ophthalmic (eye) QID Qty: 3.5 0RF No Action budesonide-formoterol [Symbicort] 160-4.5 mcg/actuation HFA aerosol inhaler 1 puff inhalation BID Qty: 30.6 1RF omeprazole 20 mg capsule,delayed release(DR/EC) 20 mg PO DAILY Qty: 90 1RF cetirizine 10 mg tablet 10 mg PO DAILY PRN (Reason: allergy symptoms) Qty: 30 3RF triamcinolone acetonide 0.1 % cream 1 appl topical DAILY PRN (Reason: rash) 10 Days Qty: 15 0RF albuterol sulfate [Ventolin HFA] 90 mcg/actuation HFA aerosol inhaler 2 puff inhalation Q6H PRN (Reason: shortness of breath or wheezing) Qty: 8 1RF levothyroxine 112 mcg tablet 112 mcg PO DAILY Qty: 90 2RF diclofenac sodium 1 % gel 2 g topical QID Qty: 100 0RF Rx Instructions: apply to single elbow, wrist or hand; for hand includes palm/fingers/back of hand cholecalciferol (vitamin D3) 50 mcg (2,000 unit) capsule 50 mcg PO DAILY tobramycin-dexamethasone 0.3-0.1 % drops,suspension 1 drp ophthalmic (eye) gabapentin 100 mg capsule 100 mg PO TID Qty: 20 0RF clotrimazole 1 % cream 1 appl topical Q12H 14 Days Qty: 45 0RF Referrals: [facility] [Provider Group] (Eye complaints) Jay Upton [Physician] - (Eye irritation) Interventions: ED Discharge Assessment Last Done: 12/31/24 00:35 Discharge Date/Time: 12/31/24 00:36 Print Language: Wolof
[2024-12-31 00:09] VITALS: BP 146/86; PULSE 74; RESP 20; TEMP 36.6; O2SAT 99
[2024-12-31] MEDS: Erythromycin Base 0.5% Oph Oin 1 GM TUBE 1 CM EYE-BOTH (00:33)
[2024-12-31] MEDS: Loratadine 10 MG TABLET PO (00:33)
[2024-12-31 00:35] VITALS: BP 146/86; PULSE 74; RESP 20; TEMP 36.6; O2SAT 99
[2024-12-31 01:11] LABS: Influenza A PCR NEGATIVE (Negative); Influenza B PCR NEGATIVE (Negative); Resp Syncy Virus RNA Qual PCR NEGATIVE (Negative); SARS COV2 PCR INHOUSE NEGATIVE (Negative)
== END 2024-12-31 00:36 | disposition home or self-care (01) ==
PROVIDERS: Emergency Provider Emergency Medicine
DX: H10.9 Unspecified conjunctivitis (principal); H57.13 Ocular pain, bilateral; Z87.891 Personal history of nicotine dependence; Z79.899 Other long term (current) drug therapy; Z03.818 Encounter for observation for suspected exposure to other biological agents ruled out
CPT/HCPCS: 0241U; 99283

== ENCOUNTER 2025-03-18 10:31 | Outpatient (AMB) | payer OTHER, SELFPAY ==
[2025-03-18 10:37] VITALS: BP 130/82; PULSE 72; TEMP 36.9; O2SAT 96
--- NOTE | 2025-03-18 10:37 | AM.OFFWIN_ITS ---
Intake Vital Signs 03/18/25 10:37 Height 5 ft 2 in BP 130/82 Blood Pressure Location Rt brachial Position Sitting Pulse 72 Pulse Source Pulse Oximeter Temp 98.5 F Temp Source Oral Pulse Oximetry (%) 96 Intake Visit Reasons: EP Diarrhea, body aches, watery & swollen eyes Patient Tobacco Use Status: Former Tobacco user Allergies Penicillins Allergy (Intermediate, Verified 03/18/25 10:39) Hives Do you need a note to return to daycare/school/sports/work: No HPI HPI Comments History of Present Illness Details History of Present Illness - The patient is a 59-year-old female pr esenting with persistent diarrhea. - Diarrhea has been present for five day s, described as watery, dark brown, and foul-smelling, not bloody or black. - Symptoms include mild stomach pain ass ociated with bowel movements and ocular burning with watery eyes. - No recent antibiotic use, liver diseas e, or changes in alcohol consumption were noted. - No history of gastrointestinal bleedin g and no recent travel history. - Hydration efforts have been limited to khurram katarina without electrolyte supplementation. - The patient recently experienced abdom inal discomfort after a meal, with no nausea or vomiting occurring. Physical Exam General: Cooperative, healthy appearing, comfortable, no acute distress and well developed Orientation: Patient oriented x3 Limitations: No limitations Head: Normal to inspection Ears: Hearing grossly normal bilaterally Nose: Normal External nose present Face and sinus: Normal facial exam Eyes: Appearance normal, both eyes and all related structures Neck: Normal visual inspection and Yes full ROM Respiratory: Normal respiratory effort and able to speak in complete sentences. Skin: No rashes or lesions noted Neuro: Patient oriented x3 Extremities: Normal to inspection [facility] Medical History Vacuolar interface dermatitis Mild intermittent asthma Environmental and seasonal allergies Acquired hypothyroidism Dyslipidemia Hypothyroidism Asthma Surgical History H/O inguinal hernia repair History of H/O: hysterectomy Family History Maternal Grandfather Diabetes type 2, controlled Father Diabetes type 2, controlled Social History Housing: Condominium Patient Tobacco Use Status: Former Tobacco user Years Smoked: 10 e-Cigarette/Vaping Use: Never Used Second Hand Smoke Exposure: No service: No Current occupational status: retired Cognitive needs: No Hearing needs: No Vision needs: No Female Reproductive History Menstrual Age of Menarche: 13 Review of Systems Const All systems reviewed & are unremarkable except as noted in HPI and below Physical Exam Vital Signs: Last Vital Signs Temp 98.5 F 03/18/25 10:37 Pulse 72 03/18/25 10:37 BP 130/82 03/18/25 10:37 Pulse Ox 96 03/18/25 10:37 Assessment & Plan Assessment & Plan (1) Acute diarrhea: Code(s): R19.7 - Diarrhea, unspecified Plan: VSS, pt well appearing. I am conducting a comprehensive test for gastrointestinal pathogens and Clostridioides difficile to identify an infection. The patient's hydration will be maintained with Gatorade and water, and a bland diet is advised for gastrointestinal comfort. Testing results will determine the necessity of antibiotics, and any exacerbation of symptoms should prompt immediate emergency evaluation. Patient was informed and verbally consented to the use of an ambient scribe for clinic note documentation during this visit. Orders: Orders GI Panel Today R19.7 - Diarrhea, unspecified CDiff Gene PCR Today R19.7 - Diarrhea, unspecified Coding Level of Care Code Est Pt Level 4 (33331) Diagnoses Acute diarrhea R19.7
--- OUTSIDE RECORDS SUMMARY | 2025-03-18 11:40 | XMS_ITS | Clinical Summary ---
Author Organization [facility] Address [address] [place] [address] Care Team Providers Care Rewards Consultant Name Role Phone Sadie Baum MD Primary [...] obesity with BMI of 4 0.0-44.9, adult (CMS/HCC V24, CMS/HCC V28) 05/10/2017 DX:Morbid obesity wit h BMI of 40.0-44.9, adult ([facility]) Family History Medical History Relation Name Comments [...] 08/29/2018, 08/29/2018, 08/29/2018 Breast Cancer Screening 09/10/2022 09/10/20, 02/27/2019 Colorectal Cancer Screening: Colonoscopy 10/08/2022 09/13/2016 Depression Screening 10/08/2022 Social Influencers of Health Screening 10/08/2022 COVID-19 Vaccine ( - 2023-2 5 season) 2024 Influenza Vaccine (Season Ended) 2025 07/15/2020, 01/08/2020, 07/11/2017 Cholesterol Screening (Lipid Panel) 01/04/2026 [...] age to complete this topic Meningococcal B Vaccine Aged Out No l onger eligible based on patient's age to complete this topic RSV Immunization Patients Under 20 months Aged Out No longer eligible b ased on patient's age to complete this topic Varicella Vaccines Aged Out No longer eligible based on patient's age to complete this topic Procedures Procedure Name Priority Date/Time Associated Diagnosis Comments LIPID PANEL Routine 01/04/2021 [facility] SCREENING DIGITAL Routine 09/10/2020 1:39 PM EST [...] mg/dL Blood Venous blood specimen / Unknown us Historical Provider LAB BLOOD ORDERABLES Erna l Result * [facility] SCREENING DIGITAL (09/10/2020 1:39 PM EST) Anatomical Region Laterality Modality Mammography 09/10/2020 8:50 AM EST Narrative 09/10/2020 1:39 PM EST [facility] Diagnostic Imaging Department [address] [place] [address] Patient: ??SAPNA,JOVANNA ?/Age/Sex: 1965 - 55 - F Unit#: ??[id number] ? Location/Status: ??SPDIMAM/REG CLI ? Mnemonic/Ordering Site: ??DIGSC/SPMAM Ordering Physician: ??AMADO MORRIS MD Seema Screening Digital - 09/10/20 - 915 History: Bilateral breast cancer screening. Technique: ??Digital mammography. Conventional CC and MLO projections with tomosynthesis MLO views and computer aided detection. Comparison: [facility] and outside mammography 02/27/2019, dating back to 12/19/2007. Findings: ?? Breast tissue consists of fatty and fibroglandular elements (category b density) bilaterally (as calculated by [employer] software). There is no suspicious group of microcalcifications, mass, architectural distortion or suspicious change in breast tissue density. Impression: No evidence of malignancy. BIRADS category 1; negative study, 3341F 46339, [id number] Note: Patient information entered into a reminder system with a target due date for the next mammogram: ??CPT II 7025F Dictating Physician: ??WOLF COLON MD Electronically Signed by: ??WOLF COLON MD Dic Date/Time: ??09/10/20 1339 Sign date/Time: ??09/10/20 1339 Procedure Note Wolf Colon MD - 10/25/2022 [facility] Diagnostic Imaging Department [address] [place] [address] [id number] Patient: JOVANNA ALEJO /Age/Sex: 1965 - 55 - F Unit#: [id number] Location/Status: SPDIMAM/REG CLI Mnemonic/Ordering Site: [facility] Ordering Physician: AMADO MORRIS MD Seema Screening Digital - 09/10/20 - 915 History: Bilateral breast cancer screening. Technique: Digital mammography. Conventional CC and MLO projectionswith tomosynthesis MLO views and computer aided detection. Comparison: [facility] and outside mammography 02/27/2019, datingback to 12/19/2007. Findings: Breast tissue consists of fatty and fibroglandular elements (category b density) bilaterally (as calculated by [employer]). There is no suspicious group of microcalcifications, mass, architectural distortion or suspicious change in breast tissue density. Impression: No evidence of malignancy. BIRADS category 1; negative study, 3341F 79430, 11173 Note: Patient information entered into a reminder system with a target duedate for the next mammogram: CPT II 7025F Dictating Physician: WOLF COLON MD Electronically Signed by: WOLF COLON MD Dic Date/Time: 09/10/20 1339 Sign date/Time: 09/10/20 1339 Amado Morris MD IMG BI PROCEDURES Final R esult * HIV Screening (01/09/2020) Pathologist [facility] HIV Screening abstracted Historical Provider HEALTH MAINTENANCE Final Result * Hepatitis C Screening (01/08/2020) Pathologist [facility] Hepatitis C Screening abstracted Historical Provider HEALTH MAINTENANCE Final Result * Pap smear (08/29/2018) 08/29/2018 Narrative HISTORICAL TESTING LAB RESULTING AGENCY - 08/31/2018 3:55 PM EDT [id number] THINPREP PAP, IMAGED: NEGATIVE FOR SQUAMOUS INTRAEPITHELIAL [...] Recently Relevant to Health Maintenance Care Teams Rewards Consultant Relationship Specialty Start Date End Date Sadie Baum MD PCP - General 10/10/23
== END 2025-03-18 13:58 | disposition home or self-care (01) ==
PROVIDERS: PCP Internal Medicine; Visit Provider Physician Assistant
DX: R19.7 Diarrhea, unspecified (principal)

== ENCOUNTER → 2025-03-18 10:31 | Outpatient (BNVA) | payer OTHER, SELFPAY | PROVIDERS: PCP Internal Medicine; Visit Provider Physician Assistant | DX: R19.7 Diarrhea, unspecified (principal) | CPT/HCPCS: 99212 ==

== ENCOUNTER 2025-03-19 08:33 | Outpatient (REF) | payer OTHER, SELFPAY ==
--- OUTSIDE RECORDS SUMMARY | 2025-03-19 10:14 | XMS_ITS | Clinical Summary ---
Author Organization [facility] Address [address] [place] [phone] Care Team Providers Care Skip Locator Name Role Phone Sadie Baum MD Primary [...] obesity wit h BMI of 40.0-44.9, adult ([facility]) Family History Medical History Relation Name Comments [...] Associated Diagnosis Comments LIPID PANEL Routine 01/04/2021 [facility] SCREENING DIGITAL Routine 09/10/2020 1:39 PM [...] LAB BLOOD ORDERABLES Erna l Result * [facility] SCREENING DIGITAL (09/10/2020 1:39 PM EST) Anatomical Region Laterality Modality Mammography 09/10/2020 8:50 AM EST Narrative 09/10/2020 1:39 PM EST [facility] Diagnostic Imaging Department [address] [place] [address] Patient: ??SAPNA,JOVANNA ?/Age/Sex: 1965 - 55 - F Unit#: ??[id number] ? Location/Status: ??SPDIMAM/REG CLI ? Mnemonic/Ordering Site: ??DIGSC/SPMAM Ordering Physician: ??AMADO MORRIS MD Seema Screening Digital - 09/10/20 - 915 History: Bilateral breast cancer screening. Technique: ??Digital mammography. Conventional CC and MLO projections with tomosynthesis MLO views and computer aided detection. Comparison: [facility] and outside mammography 02/27/2019, dating back to 12/19/2007. Findings: ?? Breast tissue consists of fatty and fibroglandular elements (category b density) bilaterally (as calculated by [employer] software). There is no suspicious group of microcalcifications, mass, architectural distortion or suspicious change in breast tissue density. Impression: No evidence of malignancy. BIRADS category 1; negative study, 3341F 41199, 31921 Note: Patient information entered into a reminder system with a target due date for the next mammogram: ??CPT II 7025F Dictating Physician: ??WOLF COLON MD Electronically Signed by: ??WOLF COLON MD Dic Date/Time: ??09/10/20 1339 Sign date/Time: ??09/10/20 1339 Procedure Note Wolf Colon MD - 10/25/2022 [facility] Diagnostic Imaging Department [address] [place] [address] [id number] Patient: JOVANNA ALEJO /Age/Sex: 1965 - 55 - F Unit#: [id number] Location/Status: SPDIMAM/REG CLI Mnemonic/Ordering Site: [facility] Ordering Physician: AMADO MORRIS MD Seema Screening Digital - 09/10/20 - 915 History: Bilateral breast cancer screening. Technique: Digital mammography. Conventional CC and MLO projectionswith tomosynthesis MLO views and computer aided detection. Comparison: [facility] and outside mammography 02/27/2019, datingback to 12/19/2007. Findings: Breast tissue consists of fatty and fibroglandular elements (category b density) bilaterally (as calculated by [employer]). There is no suspicious group of microcalcifications, mass, architectural distortion or suspicious change in breast tissue density. Impression: No evidence of malignancy. BIRADS category 1; negative study, 3341F 33727, 89262 Note: Patient information entered into a reminder system with a target duedate for the next mammogram: CPT II 7025F Dictating Physician: WOLF COLON MD Electronically Signed by: WOLF COLON MD Dic Date/Time: 09/10/20 1339 Sign date/Time: 09/10/20 1339 Amado Morris MD IMG BI PROCEDURES Final R esult * HIV Screening (01/09/2020) Pathologist [facility] HIV Screening abstracted Historical Provider HEALTH MAINTENANCE Final Result * Hepatitis C Screening (01/08/2020) Pathologist [facility] Hepatitis C Screening abstracted Historical Provider HEALTH MAINTENANCE Final Result * Pap smear (08/29/2018) 08/29/2018 Narrative HISTORICAL TESTING LAB RESULTING AGENCY - 08/31/2018 3:55 PM EDT [id number] THINPREP PAP, IMAGED: NEGATIVE FOR SQUAMOUS INTRAEPITHELIAL [...] Recently Relevant to Health Maintenance Care Teams Skip Locator Relationship Specialty Start Date End Date Sadie Baum MD PCP - General 10/10/23
[2025-03-19 14:32] LABS: CDiff Gene PCR NEGATIVE (Negative)
[2025-03-19 15:12] LABS: Adenovirus F 40/41 Not Detected (Not Detect.); Astrovirus Not Detected (Not Detect.); Campylobacter Not Detected (Not Detect.); Cryptosporidium Not Detected (Not Detect.); Cyclospora cayetanensis Not Detected (Not Detect.); E. coli EAEC Not Detected (Not Detect.); E. coli EPEC Not Detected (Not Detect.); E. coli ETEC Not Detected (Not Detect.); E. coli STEC Not Detected (Not Detect.); Entamoeba histolytica Not Detected (Not Detect.); Giardia lamblia Not Detected (Not Detect.); Norovirus GI/GII Not Detected (Not Detect.); Plesiomonas shigelloides Not Detected (Not Detect.); Rotavirus A Not Detected (Not Detect.); Salmonella Not Detected (Not Detect.); Sapovirus Not Detected (Not Detect.); Shigella sp./EIEC Not Detected (Not Detect.); Vibrio Not Detected (Not Detect.); Vibrio Cholerae Not Detected (Not Detect.)
[2025-03-19 15:21] LABS: Yersinia enterocolitica Detected (Not Detect.)
== END 2025-03-19 08:34 | disposition home or self-care (01) ==
LOC: HO.HMGCLDS 08:33
PROVIDERS: PCP Internal Medicine; Visit Provider Physician Assistant
DX: R19.7 Diarrhea, unspecified (principal)
CPT/HCPCS: 87493; 87507

== ENCOUNTER 2025-04-21 08:55 | Outpatient (AMB) | payer OTHER, SELFPAY ==
[2025-04-21 08:58] VITALS: BP 128/80; PULSE 94; TEMP 36.7; O2SAT 99; BMI 37.1
--- NOTE | 2025-04-21 08:58 | AM.OFFWIN_ITS ---
Intake Vital Signs 04/21/25 08:58 Height 5 ft 2 in Weight 203 lb 2 oz BMI 37.1 BP 128/80 Blood Pressure Location Lt brachial Position Sitting Pulse 94 Pulse Source Pulse Oximeter Temp 98.0 F Temp Source Oral Pulse Oximetry (%) 99 Oxygen Delivery Method Room Air Intake Visit Reasons: EP rash on body Intake Note: Pt presents to the office today for c/o rash on her body x3 days. Pt states it is very itchy especially on her chest Patient Tobacco Use Status: Former Tobacco user Allergies Penicillins Allergy (Intermediate, Verified 04/21/25 09:00) Hives HPI HPI Comments History of Present Illness Details 59 y/o Female patient who presents to [facility] walk in clinic with c/o Generalized body itchiness - mostly chest and neck plus B/L Upper Arms for few days now. [facility] Medical History (Updated 04/21/25 @ 09:28 by Altagracia Cárdenas NP) Generalized pruritus Vacuolar interface dermatitis Mild intermittent asthma Environmental and seasonal allergies Acquired hypothyroidism Dyslipidemia Hypothyroidism Asthma Surgical History H/O inguinal hernia repair History of H/O: hysterectomy Family History Maternal Grandfather Diabetes type 2, controlled Father Diabetes type 2, controlled Social History Housing: Condominium Patient Tobacco Use Status: Former Tobacco user Years Smoked: 10 e-Cigarette/Vaping Use: Never Used Second Hand Smoke Exposure: No service: No Current occupational status: retired Cognitive needs: No Hearing needs: No Vision needs: No Female Reproductive History Menstrual Age of Menarche: 13 Review of Systems Const All systems reviewed & are unremarkable except as noted in HPI and below Physical Exam Vital Signs: Last Vital Signs Temp 98.0 F 04/21/25 08:58 Pulse 94 04/21/25 08:58 BP 128/80 04/21/25 08:58 Pulse Ox 99 04/21/25 08:58 Oxygen Delivery Method Room Air 04/21/25 08:58 BMI result Body Mass Index 37.1 Const General: no acute distress Nutritional Appearance: obese Orientation/consciousness: patient oriented x3 Skin General skin exam: no rashes or lesions noted, dry skin and no erythema Neuro General: patient oriented x3 Psych Speech and movement: Normal speech and movement present Assessment & Plan Assessment & Plan (1) Generalized pruritus: Code(s): L29.9 - Pruritus, unspecified Plan: Patient has very dry skin - advised to moisturize with Eucecrin and Aquaphor No rashes or lesions seen. Medications: New pramoxine 1% (CeraVe Itch Relief) 1 appl topical BID 340 grams 0RF L29.9 - Pruritus, unspecified ammonium lactate 12% (AmLactin) 1 appl topical BID 225 grams 0RF L29.9 - Pruritus, unspecified Coding Level of Care Code Est Pt Level 4 (20050) Diagnoses Generalized pruritus L29.9 Time Spent (min) 20
--- OUTSIDE RECORDS SUMMARY | 2025-04-21 09:20 | XMS_ITS | Clinical Summary ---
Author Organization [facility] Address [address] [place] [phone] Care Team Providers Care Enterprise Mobility Architect Name Role Phone Sadie Baum MD Primary [...] wit h BMI of 40.0-44.9, adult ([facility]) Family History Medical History Relation Name [...] Associated Diagnosis Comments LIPID PANEL Routine 01/04/2021 [facility] SCREENING DIGITAL Routine 09/10/2020 1:39 [...] LAB BLOOD ORDERABLES Erna l Result * [facility] SCREENING DIGITAL (09/10/2020 1:39 PM EST) Anatomical Region Laterality Modality Mammography 09/10/2020 8:50 AM EST Narrative 09/10/2020 1:39 PM EST [facility] Diagnostic Imaging Department [address] [place] [address] Patient: ??SAPNA,JOVANNA ?/Age/Sex: 1965 - 55 - F Unit#: ??[id number] ? Location/Status: ??SPDIMAM/REG CLI ? Mnemonic/Ordering Site: ??DIGSC/SPMAM Ordering Physician: ??AMADO MORRIS MD Seema Screening Digital - 09/10/20 - 915 History: Bilateral breast cancer screening. Technique: ??Digital mammography. Conventional CC and MLO projections with tomosynthesis MLO views and computer aided detection. Comparison: [facility] and outside mammography 02/27/2019, dating back to 12/19/2007. Findings: ?? Breast tissue consists of fatty and fibroglandular elements (category b density) bilaterally (as calculated by [employer] software). There is no suspicious group of microcalcifications, mass, architectural distortion or suspicious change in breast tissue density. Impression: No evidence of malignancy. BIRADS category 1; negative study, 3341F 63384, [id number] Note: Patient information entered into a reminder system with a target due date for the next mammogram: ??CPT II 7025F Dictating Physician: ??WOLF COLON MD Electronically Signed by: ??WOLF COLON MD Dic Date/Time: ??09/10/20 1339 Sign date/Time: ??09/10/20 1339 Procedure Note Wolf Colon MD - 10/25/2022 [facility] Diagnostic Imaging Department [address] [place] [address] [phone] Patient: JOVANNA ALEJO /Age/Sex: 1965 - 55 - F Unit#: [id number] Location/Status: SPDIMAM/REG CLI Mnemonic/Ordering Site: [facility] Ordering Physician: AMADO MORRIS MD Seema Screening Digital - 09/10/20 - 915 History: Bilateral breast cancer screening. Technique: Digital mammography. Conventional CC and MLO projectionswith tomosynthesis MLO views and computer aided detection. Comparison: [facility] and outside mammography 02/27/2019, datingback to 12/19/2007. Findings: Breast tissue consists of fatty and fibroglandular elements (category b density) bilaterally (as calculated by [employer]). There is no suspicious group of microcalcifications, mass, architectural distortion or suspicious change in breast tissue density. Impression: No evidence of malignancy. BIRADS category 1; negative study, 3341F 27337, 48954 Note: Patient information entered into a reminder [...] Result * Hepatitis C Screening (01/08/2020) Pathologist [facility] Hepatitis C Screening abstracted Historical Provider HEALTH MAINTENANCE Final Result * Pap smear (08/29/2018) 08/29/2018 Narrative HISTORICAL TESTING LAB RESULTING AGENCY - 08/31/2018 3:55 PM EDT [id number] THINPREP PAP, IMAGED: NEGATIVE FOR SQUAMOUS INTRAEPITHELIAL [...] Recently Relevant to Health Maintenance Care Teams Enterprise Mobility Architect Relationship Specialty Start Date End Date Sadie Baum MD PCP - General 10/10/23
== END 2025-04-21 09:59 | disposition home or self-care (01) ==
PROVIDERS: PCP Internal Medicine; Visit Provider Nurse Practitioner Family
DX: L29.9 Pruritus, unspecified (principal)

== ENCOUNTER → 2025-04-21 08:55 | Outpatient (BNVA) | payer OTHER, SELFPAY | PROVIDERS: PCP Internal Medicine; Visit Provider Nurse Practitioner Family | DX: L29.9 Pruritus, unspecified (principal) | CPT/HCPCS: 99212 ==